=== PATIENT | female | born 1965 | race African-American/Black ===

== ENCOUNTER 2024-08-28 14:20 | Outpatient (AMB) | payer OTHER, SELFPAY ==
--- NOTE | 2024-08-28 14:30 | MHC.OFFVIS ---
Vital Signs 08/28/24 14:31 Height 5 ft 2 in Weight 253 lb 15.56 oz BMI 46.4 BP 120/64 Blood Pressure Location Lt brachial Position Sitting Pulse 104 H Pulse Source Pulse Oximeter Pulse Oximetry (%) 96 Oxygen Delivery Method Room Air Intake Visit Reasons: Hyperthyroidism Intake Note: New patient present today for Hyperthyroidism. Lockstitch Hemmer Required: No Accompanied by: Self / Same As Patient Allergies No Known Allergies Allergy (Verified 08/28/24 14:35) Medication List - Last Reconciled 08/28/24 by Rosemarie Mart MD atorvastatin 40 mg PO DAILY meloxicam 7.5 mg PO DAILY tirzepatide (weight loss) (Zepbound) 2.5 mg subcut QWEEK HPI Comments Details: 58-year-old female coming in today for initial evaluation of hyperthyroidism. Was being seen by endo at [facility] some 3-4 years ago . Diagnosed sometime in 2020/2021. Was never started on medication per patient . Per PCP notes she used to be on methimazole. Thinks she had an US and maybe an uptake and scan. Patient currently denies heat or cold intolerance, diarrhea or constipation, hair loss, palpitation, anxiety, weight changes, mood changes, low energy, changes in appearance of eyes or vision changes, tremors, increased diaphoresis or dry skin. ? Patient denies any difficulty swallowing, pain on swallowing or voice changes or difficulty breathing. Patient denies any history of childhood neck radiation. Denies having ever used lithium, amiodarone or biotin supplements. Patient denies any family history of thyroid cancer or thyroid disease. Physical exam General: sitting comfortably in no acute distress HEENT: normocephalic/atraumatic, EOM intact, moist oral mucosa Neck: supple, , palpable 1 cm right-sided nodule, enlarged thyroid gland Cardiac: normal heart sounds Pulm: normal breath sounds B/L, no added breath sounds Abd: not distended, no tenderness Extremities: no edema, no signs of myxedema PFSH Medical History (Updated 08/28/24 @ 14:58 by Rosemarie Mart MD) Thyromegaly Hyperthyroidism delivery delivered Surgical History (Updated 08/28/24 @ 14:38 by KIANNA Loya) H/O removal of cyst Family History (Updated 08/28/24 @ 14:38 by KIANNA Loya) Mother Kidney problem Father No problems noted. Social History Alcohol intake: never Patient Tobacco Use Status: Current everyday Tobacco user Tobacco use type: Cigarette Cigarette Packs Per Day: 1 Assessment & Plan Assessment & Plan (1) Hyperthyroidism: Code(s): E05.90 - Thyrotoxicosis, unspecified without thyrotoxic crisis or storm Category: Medical Plan: 58-year-old female coming in today for initial evaluation of hyperthyroidism. Per chart review she has a history of hyperthyroidism diagnosed some 3-4 years ago, she was on methimazole for a little bit but has been off it for a few years. Was lost to follow up. Was previously seen at [facility]. We will try to obtain records. For now I will order her thyroid labs. On my exam she is mildly tachycardic but otherwise denies any symptoms. No tremors. She denies any vision changes but she does have a little bit of a stare on exam, possibly concerning for some early signs of orbitopathy. Plan: -ordered TSH, free T4, total T3, TSH receptor, TPO and TSI antibodies -get records from [facility] (2) Thyromegaly: Code(s): E01.0 - Iodine-deficiency related diffuse (endemic) goiter Category: Medical Plan: On my exam she has a prominent thyroid gland with a possible palpable nodule on the right side about 1 cm in size. We will obtain thyroid ultrasound. Plan: -ordered thyroid ultrasound Plan See above Orders: Orders Thyroid Stimulating Hormone Today E05.90 - Thyrotoxicosis, unspecified without thyrotoxic crisis or storm Free T4 (Free Thyroxine) Today E05.90 - Thyrotoxicosis, unspecified without thyrotoxic crisis or storm Thyroid Peroxidase Antibodies Today E05.90 - Thyrotoxicosis, unspecified without thyrotoxic crisis or storm Thyroid Stimulating Immunoglob Today E05.90 - Thyrotoxicosis, unspecified without thyrotoxic crisis or storm Thyrotropin Receptor Antibody Today E05.90 - Thyrotoxicosis, unspecified without thyrotoxic crisis or storm US thyroid Today E01.0 - Iodine-deficiency related diffuse (endemic) goiter, E05.90 - Thyrotoxicosis, unspecified without thyrotoxic crisis or storm Triiodothyronine T3 Total Today E05.90 - Thyrotoxicosis, unspecified without thyrotoxic crisis or storm Patient Instructions: Do blood work Do ultrasound of the thyroid, someone will call you to schedule this Follow up in 6 weeks to discuss results Coding Level of Care Code New Pt Level 4 (10289) Diagnoses Hyperthyroidism E05.90 Thyromegaly E01.0
[2024-08-28 14:31] VITALS: BP 120/64; PULSE 104; O2SAT 96; BMI 46.4
--- OUTSIDE RECORDS SUMMARY | 2024-08-28 15:47 | XMS_ITS | Clinical Summary ---
Author Organization [address] [facility] Address [address] [place] [phone] Phone Care Team Providers Care Telephone Solicitor Name Role Phone Herbie Huang DO Primary Care Provider [phone] Allergies No known active allergies Medications atorvastatin (LIPITOR) 40 mg tablet Take 1 tablet (40 mg total) by mouth at bedtime. 11/13/19 20 Active meloxicam (MOBIC) 7.5 mg tablet Take 1 tablet (7.5 mg total) by mouth 1 (one) time each day. Active albuterol HFA (PROVENTIL HFA;VENTOLIN HFA) 108 (90 Base) MCG/ACT inhaler Inhale 2 puffs by mouth every 4 (four) hours. Active Zepbound 2.5 mg/0.5 mL injection Inject 0.5 mL (2.5 mg total) under the skin 1 (one) time per week. 07/24/19 25 Active bisacodyL (DULCOLAX) 5 mg EC tablet Take 2 tablets by mouth right before beginning bowel prep. See instructions provided by the office 2 tablet 08/10/19 25 025 Discontinued polyethylene glycol (Golytely) 236-22.74-6.74 -5.86 gram solution Take 4L by mouth once for one dose. May substitue any PEG. Starting at 6PM the night before your procedure drink 1 8oz glasses at your own pace until you complete half of the gallon. Finish 2nd half of the gallon 5 hours before your procedure. 4000 mL 08/10/19 25 025 Discontinued Encounters Date Type Department Care Team Description 08/27/2024 Telephone Gastroenterology - [address] [place] [phone] Kate Simpson MA 08/23/2024 1:48 PM EDT - 08/23/2024 11:59 PM EDT Hospital Encounter [facility] [address] [place] [phone] Ashley Henao MD Georgette, Nathaniel, CRNA Kriz, Petra, MD Hx of colonic polyps Discharge Disposition: Home or Self Care 07/06/2024 7:49 AM EDT - 07/06/2024 11:59 PM EDT [facility] [address] [phone] Visit for screening mammogram Discharge Disposition: Home or Self Care 06/27/2024 Telephone Gastroenterology - [address] [phone] Adalid Blandon MD SPECIAL PROCEDURE from Last 3 Months Surgical History Surgery Date Site/Laterality Comments MULTIPLE TOOTH EXTRACTIONS PROCEDURE: HISTORICAL DENTAL EXTRACTION Medical History Medical History Date Comments Obesity 04/18/2007 DX:Obesity Hyperlipidemia Family History Medical History Relation Name Comments Diabetes Father Prostate cancer Father Breast cancer Neg Hx Relation Name Status Comments Brother Alive 2 Father Alive Mother Alive atrial fibrilla tion, CKD Social History Tobacco Use Types Packs/Day Years Used Date Smoking Tobacco: Every Day Cigarettes Smokeless Tobacco: Current Alcohol Use Standard Drinks/Week Comments No 0 (1 standard drink = 0.6 oz pur e alcohol) Interpersonal Safety Answer Date Record ed Physical Abuse 08/23/2024 Verbal Abuse 08/23/2024 Comments No Sex and Gender Information Value Date Recorded Sex Assigned at Female 07/04/2024 9:02 AM EDT Legal Sex Female 8:08 PM EST Gender Identity Female 07/04/2024 9:02 AM EDT Sexual Orientation Straight 07/04/2024 9: 02 AM EDT Obstetrics History Para Term AB IAB SAB Ectopic Multiple Livin g Live Births 2 Last Filed Vital Signs Vital Sign Reading Time Taken Comments Blood Pressure 133/91 08/23/2024 2:35 PM EDT Pulse 86 08/23/2024 2:35 PM EDT Temperature 36.8 ??C (98.2 ??F) 08/23/2024 2:35 PM ED T Respiratory Rate 18 08/23/2024 2:35 PM EDT Oxygen Saturation 100% 08/23/2024 2:35 PM EDT Inhaled Oxygen Concentration - - Weight 74.4 kg (164 lb) 07/06/2024 7:58 AM EDT Height 157.5 cm (5' 2 ) 07/06/2024 7:58 AM EDT Body Mass Index 30 07/06/2024 7:58 AM EDT Plan of Treatment Health Maintenance Due Date Last Done Comments Diabetes: Annual Foot Exam 10/29/1975 Diabetes: Annual Retina Eye Exam 10/29/1975 Hepatitis B Vaccines (1 of 3 - 19+ 3-dose series) 1984 Pneumococcal Vaccine: 50+ Years (1 of 2 - PCV) 1984 Pneumococcal Vaccine: Pediatrics (0 to 5 Years) and At-Risk Patients (6 to 64 Years) (1 of 2 - PCV) 1984 Cervical Cancer Screening: Pap Smear 1986 Zoster Vaccines (1 of 2) 10/29/2015 DTaP,Tdap,and Td Vaccines (2 - Td or Tdap) 04/18/2017 04/18/2007 Depression Screening 03/13/2022 HIV Screening 03/13/2022 Hepatitis C Screening 03/13/2022 Social Influencers of Health Screening 03/13/2022 Diabetes: Blood Sugar Control Test (HGBA1C) 12/28/2024 06/27/2024 Diabetes: Annual Urine Albumin-Creatinine Ratio (uACR) 06/27/2025 06/27/2024 Diabetes: Annual GFR (Glomerular Filtration Rate) 06/27/2025 06/27/2024 Breast Cancer Screening 07/06/2026 07/06/2024, 04/13 Cholesterol Screening (Lipid Panel) 06/27/2029 06/27/2024 Colorectal Cancer Screening: Colonoscopy 08/23/2034 08/23/2024, 05/10/2017 COVID-19 Vaccine Completed 12/31/2023, 11/2022, 01/13/2021, Additional history exists Influenza Vaccine Completed 12/31/2023, , 01/26/2022, Additional history exists HIB Vaccines Aged Out No longer eligi ble based on patient's age to complete this topic HPV Vaccines Aged Out No longer eligi ble based on patient's age to complete this topic Hepatitis A Vaccines Aged Out No long er eligible based on patient's age to complete this topic IPV Vaccines Aged Out No longer eligi ble based on patient's age to complete this topic MMR Vaccines Aged Out No longer eligi ble based on patient's age to complete this topic Meningococcal ACWY Vaccine Aged Out N o longer eligible based on patient's age to complete this topic Meningococcal B Vaccine Aged Out No l onger eligible based on patient's age to complete this topic RSV Immunization Patients Under 20 months Aged Out No longer eligible based on patient's age to complete this topic Varicella Vaccines Aged Out No longer eligible based on patient's age to complete this topic Procedures Procedure Name Priority Date/Time Associated Diagnosis Comments COLONOSCOPY Routine 08/23/2024 2:33 PM EDT Hx of colonic polyps TISSUE EXAM Routine 08/23/2024 2:30 PM EDT Hx of colonic polyps MG MAMMO DIGITAL SCREENING W YOVANI BILAT Routine 07/06/2024 8:14 AM EDT Visit for screening mammogram THYROXINE FREE Routine 06/27/2024 8:29 AM EDT Routine general medical examination at a health care facility Impaired fasting glucose 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 ischemic heart disease 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 Hyperlipemia DM2 (diabetes mellitus, type 2) (CMS/HCC V24, CMS/HCC V28) Diabetes mellitus (CMS/HCC V24, CMS/HCC V28) CBC WITH AUTO DIFFERENTIAL Routine 06/27/2024 8:29 AM EDT Routine general medical examination at a health care facility Impaired fasting glucose 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 ischemic heart disease 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 Hyperlipemia DM2 (diabetes mellitus, type 2) (CMS/HCC V24, CMS/HCC V28) Diabetes mellitus (CMS/HCC V24, CMS/HCC V28) MICROALBUMIN CREATININE URINE RATIO Routine 06/27/2024 8:29 AM EDT Routine general medical examination at a health care facility Impaired fasting glucose 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 ischemic heart disease 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 Hyperlipemia DM2 (diabetes mellitus, type 2) (CMS/HCC V24, CMS/HCC V28) Diabetes mellitus (CMS/HCC V24, CMS/HCC V28) HEMOGLOBIN A1C Routine 06/27/2024 8:29 AM EDT Routine general medical examination at a health care facility Impaired fasting glucose 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 ischemic heart disease 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 Hyperlipemia DM2 (diabetes mellitus, type 2) (CMS/HCC V24, CMS/HCC V28) Diabetes mellitus (CMS/HCC V24, CMS/HCC V28) CBC AND DIFFERENTIAL Routine 06/27/2024 8:29 AM EDT Routine general medical examination at a health care facility Impaired fasting glucose 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 ischemic heart disease 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 Hyperlipemia DM2 (diabetes mellitus, type 2) (CMS/HCC V24, CMS/HCC V28) Diabetes mellitus (CMS/HCC V24, CMS/HCC V28) THYROID STIMULATING HORMONE Routine 06/27/2024 8:29 AM EDT Routine general medical examination at a health care facility Impaired fasting glucose 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 ischemic heart disease 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 Hyperlipemia DM2 (diabetes mellitus, type 2) (CMS/HCC V24, CMS/HCC V28) Diabetes mellitus (CMS/HCC V24, CMS/HCC V28) BASIC METABOLIC PANEL Routine 06/27/2024 8:29 AM EDT Routine general medical examination at a health care facility Impaired fasting glucose 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 ischemic heart disease 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 Hyperlipemia DM2 (diabetes mellitus, type 2) (CMS/HCC V24, CMS/HCC V28) Diabetes mellitus (CMS/HCC V24, CMS/HCC V28) CREATINE KINASE Routine 06/27/2024 8:29 AM EDT Routine general medical examination at a health care facility Impaired fasting glucose 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 ischemic heart disease 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 Hyperlipemia DM2 (diabetes mellitus, type 2) (CMS/HCC V24, CMS/HCC V28) Diabetes mellitus (CMS/HCC V24, CMS/HCC V28) ASPARTATE AMINOTRANSFERASE Routine 06/27/2024 8:29 AM EDT Routine general medical examination at a health care facility Impaired fasting glucose 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 ischemic heart disease 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 Hyperlipemia DM2 (diabetes mellitus, type 2) (CMS/HCC V24, CMS/HCC V28) Diabetes mellitus (CMS/HCC V24, CMS/HCC V28) ALANINE AMINOTRANSFERASE Routine 025 8:29 AM EDT Routine general medical examination at a health care facility Impaired fasting glucose 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 ischemic heart disease 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 Hyperlipemia DM2 (diabetes mellitus, type 2) (CMS/HCC V24, CMS/HCC V28) Diabetes mellitus (CMS/HCC V24, CMS/HCC V28) LIPID PANEL WITH REFLEX TO DIRECT LDL Routine 06/27/2024 8:29 AM EDT Routine general medical examination at a health care facility Impaired fasting glucose 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 ischemic heart disease 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 Hyperlipemia DM2 (diabetes mellitus, type 2) (CMS/HCC V24, CMS/HCC V28) Diabetes mellitus (CMS/HCC V24, CMS/HCC V28) from Last 3 Months Results * [place] [facility] [place] [facility] (08/23/2024 2:33 PM EDT) Anatomical Region Laterality Modality Endoscopy 08/23/2024 2:19 PM EDT Impressions 08/23/2024 2:32 PM EDT - Two 3 to 5 mm polyps in the sigmoid colon, removed ? with a cold snare. Resected and retrieved. ? - Internal hemorrhoids. Recommendation: ?- Repeat colonoscopy at appointment to be scheduled ? because the examination was incomplete. ? - Await pathology results. Narrative 08/23/2024 2:32 PM EDT [facility] Patient Name: Loli Shah Procedure Date: 08/23/2024 2:19 PM Date of : 1965 Age: 58 Gender: Female Note Status: Finalized Attending MD: Ashley Henao MD, Procedure Date No Time: 08/23/2024 Procedure: ? Colonoscopy Indications: ? 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 Ashley Henao MD Referring MD: ?Herbie Huang, DO Medicines: ? None, Patient was not told to stop Zebound prior to ? procedure. She had completed the prep so still wanted ? to try doing the colonoscopy without sedation. Complications: ? No immediate complications. Estimated Blood Loss: ? Estimated blood loss: none. Procedure: ? Pre-Anesthesia Assessment: ? - ASA Grade Assessment: II - A patient with mild ? systemic disease. ? After I obtained informed consent, the scope was ? passed under direct vision. Throughout the procedure, ? the patient's blood pressure, pulse, and oxygen ? saturations were monitored continuously.The ? Colonoscope was introduced through the anus with the ? intention of advancing to the ileum. The scope was ? advanced to the splenic flexure before the procedure ? was aborted due to patient discomfort. Medications ? were not given. The colonoscopy was performed without ? difficulty. The patient tolerated the procedure fairly ? well. The quality of the bowel preparation was ? excellent. Findings: ?The perianal and digital rectal examinations were ? normal. ? Two sessile polyps were found in the sigmoid colon. ? The polyps were 3 to 5 mm in size. These polyps were ? removed with a cold snare. Resection and retrieval ? were complete. ? Internal hemorrhoids were found during retroflexion. ? The hemorrhoids were Grade I (internal hemorrhoids ? that do not prolapse). Procedure Code(s): ? --- Professional --- ? 74593, 52, Colonoscopy, flexible; with removal of ? tumor(s), polyp(s), or other lesion(s) by snare ? technique Diagnosis Code(s): ? --- Professional --- ? Z86.010, Personal history of colonic polyps ? D12.5, Benign neoplasm of sigmoid colon CPT copyright 2020 [employer]. All rights reserved. The codes documented in this report are preliminary and upon cook cold meat review may be revised to meet current compliance requirements. Ashley Henao MD 08/23/2024 2:32:26 PM This report has been signed electronically.Ashley Henao MD Number of Addenda: 0 Note Initiated On: 08/23/2024 2:19 PM Scope In: Scope Out: ? Endoscopy Department at [facility] - [address] [place] [address], ? [place] [phone] Procedure Note Ashley Henao MD - 08/23/2024 [facility] Patient Name: Loli Shah Procedure Date: 08/23/2024 2:19 PM Date of : 1965 Age: 58 Gender: Female Note Status: Finalized Attending MD: Ashley Henao MD, Procedure Date No Time: 08/23/2024 Procedure: Colonoscopy Indications: High risk colon cancer surveillance: Personalhistory of traditional serrated adenoma of the colon Providers: Ashley Henao MD Referring MD: Herbie Huang DO Medicines: None, Patient was not told to stop Zebound prior to procedure. She had completed the prep so stillwanted to try doing the colonoscopy without sedation. Complications: No immediate complications. Estimated Blood Loss: Estimated blood loss: none. Procedure: Pre-Anesthesia Assessment: - ASA Grade Assessment: II - A patient with mild systemic disease. After I obtained informed consent, the scope was passed under direct vision. Throughout theprocedure, the patient's blood pressure, pulse, and oxygen saturations were monitored continuously.The Colonoscope was introduced through the anus withthe intention of advancing to the ileum. The scope was advanced to the splenic flexure before theprocedure was aborted due to patient discomfort. Medications were not given. The colonoscopy was performedwithout difficulty. The patient tolerated the procedurefairly well. The quality of the bowel preparation was excellent. Findings: The perianal and digital rectal examinations were normal. Two sessile polyps were found in the sigmoid colon. The polyps were 3 to 5 mm in size. These polypswere removed with a cold snare. Resection and retrieval were complete. Internal hemorrhoids were found duringretroflexion. The hemorrhoids were Grade I (internal hemorrhoids that do not prolapse). Procedure Code(s): --- Professional --- 42677, 52, Colonoscopy, flexible; with removal of tumor(s), polyp(s), or other lesion(s) by snare technique Diagnosis Code(s): --- Professional --- Z86.010, Personal history of colonic polyps D12.5, Benign neoplasm of sigmoid colon CPT copyright 2020 [employer]. All rights reserved. The codes documented in this report are preliminary and upon cook cold meat reviewmay be revised to meet current compliance requirements. Ashley Henao MD 08/23/2024 2:32:26 PM This report has been signed electronically.Ashley Henao MD Number of Addenda: 0 Note Initiated On: 08/23/2024 2:19 PM Scope In: Scope Out: Endoscopy Department at [facility] - [address] [place] [phone] IMPRESSION: - Two 3 to 5 mm polyps in the sigmoid colon, removed with a cold snare. Resected and retrieved. - Internal hemorrhoids. Recommendation: - Repeat colonoscopy at appointment to be scheduled because the examination was incomplete. - Await pathology results. us Ashley Henao MD GI~PROCEDURE ORDERABLES Final Result * Tissue exam (08/23/2024 2:30 PM EDT) Final Diagnosis Polyps (x2 per specimen label), sigmoid colon, polypectomy: - Hyperplastic polyp(s) (three fragments). 08/27/2024 9:17 AM EDT [facility] Gross Description A. Large Intestine, Sigmoid Colon, polyp x2: Labeled sigmoid colon polyp x 2 . Received in formalin are three soft to rubbery, pearson-brown tissue fragments ranging from 0.6 cm to 1.5 cm, in greatest diameters, which are wrapped in paper and submitted in toto in one cassette, three pieces, multiple levels. dvb/DG 08/27/2024 9:17 AM EDT [facility] Disclaimer Unless otherwise specified, all tissue is 10% NB formalin fixed and paraffin embedded. 08/27/2024 9:17 AM EDT [facility] Tissue Sigmoid colon structure / Unknown 08/23/2024 2:30 PM EDT 08/23/2024 3:49 PM EDT us Ashley Henao MD LAB PATHOLOGY ORDERABLES Final Result [facility] [address] [place] [address], * MG Mammo Digital Screening w Yovani bilat (07/06/2024 8:14 AM EDT) Anatomical Region Laterality Modality Breast Bilateral Mammography 07/10/2024 4:50 PM EDT Impressions 07/10/2024 4:56 PM EDT No evidence of breast malignancy BI-RADS CATEGORY: 1 - NEGATIVE RECOMMENDATION: Screening bilateral mammogram is recommended in 1 year. Mammo Location: [facility], [address] [place] [address], [id number], . -------- FINAL REPORT -------- Dictated By: Valerie Leonardo Dictated Date: 07/10/2024 16:50 ET Assigned Physician: Valerie Leonardo Reviewed and Electronically Signed By: Valerie Leonardo Signed Date: 07/10/2024 16:56 ET Workstation ID: [id number] Transcribed By: Self Edit Transcribed Date: 07/10/2024 16:50 ET Narrative 07/10/2024 4:56 PM EDT CLINICAL: 58 years old, Female, routine annual exam. COMPARISON: 04/13/2018 and 04/08/2017 ?? TECHNIQUE: Bilateral MLO and CC views were obtained digitally with 3-D mammogram (digital breast tomosynthesis). Computer-aided detection was utilized in evaluation of this exam (CAD). FINDINGS: There is no evidence of suspicious mass or architectural distortion. ??No worrisome calcifications are evident. ??There has been no significant change from prior exam(s). ? Stable biopsy marker in the left breast. BREAST DENSITY: B - There are scattered areas of fibroglandular density. Procedure Note Valerie Leonardo MD - 07/10/2024 CLINICAL: 58 years old, Female, routine annual exam. COMPARISON: 04/13/2018 and 04/08/2017 TECHNIQUE: Bilateral MLO and CC views were obtained digitally with 3-Dmammogram (digital breast tomosynthesis). Computer-aided detection wasutilized in evaluation of this exam (CAD). FINDINGS: There is no evidence of suspicious mass or architectural distortion. Noworrisome calcifications are evident. There has been no significantchange from prior exam(s). Stable biopsy marker in the left breast. BREAST DENSITY: B - There are scattered areas of fibroglandular density. IMPRESSION: No evidence of breast malignancy BI-RADS CATEGORY: 1 - NEGATIVE RECOMMENDATION: Screening bilateral mammogram is recommended in 1 year. Mammo Location: [facility], [address] [place] [address], [id number], . -------- FINAL REPORT -------- Dictated By: Valerie Leonardo Dictated Date: 07/10/2024 16:50 ET Assigned Physician: Valerie Leonardo Reviewed and Electronically Signed By: Valerie Leonardo Signed Date: 07/10/2024 16:56 ET Workstation ID: [id number] Transcribed By: Self Edit Transcribed Date: 07/10/2024 16:50 ET us Herbie Huang DO IMG BI PROCEDURES Final Resul t * Lipid panel with reflex to direct LDL (06/27/2024 8:29 AM EDT) Cholesterol 154 0 - 200 mg/dL LAB CHEMISTRY METHOD 06/27/2024 12:23 PM EDT [facility] Triglycerides 85 0 - 150 mg/dL LAB CHEMISTRY METHOD 06/27/2024 12:23 PM EDT [facility] HDL 43 >=40 mg/dL LAB CHEMISTRY METHOD 06/27/2024 12:23 PM EDT [facility] LDL Calculated 94 0 - 100 mg/dL LAB CHEMISTRY METHOD 06/27/2024 12:23 PM EDT [facility] VLDL Cholesterol Bebo 17 mg/dL LAB CHEMISTRY METHOD 06/27/2024 12:23 PM EDT [facility] Non HDL Chol. (LDL+VLDL) 111 <145 mg/dL LAB CHEMISTRY METHOD 06/27/2024 12:23 PM EDT [facility] Chol/HDL Ratio 3.6 0.0 - 4.4 LAB CHEMISTRY METHOD 06/27/2024 12:23 PM T [facility] Blood Venous blood specimen / Unknown Venipuncture / Unknown 06/27/2024 8:29 AM EDT 06/27/2024 8:29 AM EDT us Patiño Petersen GENERAL MEDICAL PRACTITIONER LAB BLOOD ORDERABLES Final Resul t [facility] [address] [place] [address], * (ABNORMAL) CBC auto differential (06/27/2024 8:29 AM EDT) WBC 5.9 4.8 - 10.8 K/mcL LAB HEMETOLOGY METHOD 06/27/2024 11:32 AM EDT [facility] RBC 4.80 3.80 - 4.80 M/mcL LAB HEMETOLOGY [facility] Hemoglobin 12.2 11.5 - 16.0 g/dL LAB HEMETOLOGY METHOD 06/27/2024 11:32 AM [facility] Hematocrit 39.5 35.0 - 47.0 % LAB HEMETOLOGY METHOD [facility]24 [facility] MCV 82.3 79.0 - 98.0 FL LAB HEMETOLOGY METHOD 06/27/2024 11:32 AM [facility] MCH 25.4(L) 27.0 - 32.0 pcg LAB HEMETOLOGY METHOD 06/27/2024 11:32 AM [facility] MCHC 30.9(L) 32.0 - 37.0 g/dL LAB HEMETOLOGY METHOD 06/27/2024 11:32 AM [facility] RDW 15.4(H) 11.0 - 15.0 % LAB HEMETOLOGY METHOD 06/27/2024 11:32 AM [facility] Platelets 300 130 - 400 K/mcL LAB HEMETOLOGY METHOD [facility]/27[facility]2024 [facility] MPV 10.4 7.0 - 11.0 FL LAB HEMETOLOGY METHOD 06/27/2024 11:32 AM [facility] NRBC 0.0 <1.0 % LAB HEMETOLOGY METHOD 06/27/2024 11:32 AM [facility] NRBC Absolute 0.00 <0.10 K/mcL LAB HEMETOLOGY METHOD 06/27/2024 11:32 AM [facility] Neutrophils Relative 59.8 % LAB HEMETOLOGY METHOD 06/27/2024 11:32 AM [facility] Lymphocytes Relative 29.9 % LAB HEMETOLOGY METHOD 06/27/2024 11:32 AM [facility] Monocytes Relative 7.8 % LAB HEMETOLOGY METHOD 06/27/2024 11:32 AM [facility] Eosinophils Relative 1.5 % LAB HEMETOLOGY METHOD 06/27/2024 11:32 AM [facility] Basophils Relative 0.7 % LAB HEMETOLOGY METHOD 06/27/2024 11:32 AM [facility] Immature Granulocytes Relative 0.3 % LAB HEMETOLOGY METHOD 06/27/2024 11:32 AM [facility] Neutrophils Absolute 3.54 1.50 - 7.00 K/mcL LAB HEMETOLOGY METHOD 06/27/2024 11:32 AM [facility] Lymphocytes Absolute 1.77 1.00 - 5.00 K/mcL LAB HEMETOLOGY METHOD 06/27/2024 11:32 AM [facility] Monocytes Absolute 0.46 0.20 - 1.00 K/mcL LAB HEMETOLOGY METHOD 06/27/2024 11:32 AM [facility] Eosinophils Absolute 0.09 0.00 - 0.50 K/mcL LAB HEMETOLOGY METHOD 06/27/2024 11:32 AM [facility] Basophils Absolute 0.04 0.00 - 0.20 K/mcL LAB HEMETOLOGY METHOD 06/27/2024 11:32 AM EDT [facility] Immature Granulocytes Absolute 0.02 0.00 - 0.03 K/[facility] LAB HEMETOLOGY METHOD 06/27/2024 11:32 AM EDT [facility] Blood Venous blood specimen / Unknown Venipuncture / Unknown 06/27/2024 8:29 AM EDT 06/27/2024 8:29 AM EDT us Patiño Petersen GENERAL MEDICAL PRACTITIONER LAB BLOOD ORDERABLES Final Resul t Performing Organization Address [facility]/ZIP Co de Phone Number [facility] [address] [place] [address], [place] [phone] * Microalbumin creatinine urine ratio (06/27/2024 8:29 AM EDT) Creatinine, Urine 290.0 mg/dL LAB CHEMISTRY METHOD 06/27/2024 12:46 PM EDT [facility] Microalb, Ur 16.2 0.0 - 29.0 mg/L LAB CHEMISTRY METHOD 06/27/2024 12:46 PM EDT [facility] Microalb/Creat Ratio 6 <30 mg/g creat LAB CHEMISTRY METHOD 06/27/2024 12:46 PM EDT [facility] Urine Urine specimen obtained by clean catch procedure / Unknown Non-blood Collection / Unknown 06/27/2024 8:29 AM EDT 06/27/2024 8:29 AM EDT us Patiño Petersen GENERAL MEDICAL PRACTITIONER LAB URINE ORDERABLES Final Resul t Performing Organization Address [facility]/ZIP Co de Phone Number [facility] [address] [place] [address], [place] [phone] * Alanine aminotransferase (06/27/2024 8:29 AM EDT) ALT (SGPT) 15 10 - 60 unit/L LAB CHEMISTRY METHOD 06/27/2024 12:23 PM EDT [facility] Blood Venous blood specimen / Unknown Venipuncture / Unknown 06/27/2024 8:29 AM EDT 06/27/2024 8:29 AM EDT us Patiño Petersen GENERAL MEDICAL PRACTITIONER LAB BLOOD ORDERABLES Final Resul t Performing Organization Address City/[facility] Co de Phone Number [facility] [address] [place] [address], [place] [phone] * Aspartate aminotransferase (06/27/2024 8:29 AM EDT) AST (SGOT) 11 10 - 42 unit/L LAB CHEMISTRY METHOD 06/27/2024 12:16 PM EDT [facility] Blood Venous blood specimen / Unknown Venipuncture / Unknown 06/27/2024 8:29 AM EDT 06/27/2024 8:29 AM EDT us Patiño Petersen GENERAL MEDICAL PRACTITIONER LAB BLOOD ORDERABLES Final Resul t Performing Organization Address [facility] de Phone Number [facility] [address] [place] [address], [place] [phone] * (ABNORMAL) Thyroid stimulating hormone (06/27/2024 8:29 AM EDT) TSH 0.11(L) 0.40 - 4.00 mcIU/mL LAB CHEMISTRY METHOD 06/27/2024 12:23 PM EDT [facility] Blood Venous blood specimen / Unknown Venipuncture / Unknown 06/27/2024 8:29 AM EDT 06/27/2024 8:29 AM EDT us Patiño Petersen GENERAL MEDICAL PRACTITIONER LAB BLOOD ORDERABLES Final Resul t Performing Organization Address City/[facility]/ZIP Co de Phone Number [facility] [address] [place] [address], [place] [phone] * Thyroxine free (06/27/2024 8:29 AM EDT) Free T4 1.21 0.70 - 1.80 ng/dL LAB CHEMISTRY METHOD 06/29/2024 4:01 PM EDT [facility] Blood Venous blood specimen / Unknown Venipuncture / Unknown 06/27/2024 8:29 AM EDT 06/27/2024 8:29 AM EDT Patiño [facility] LAB BLOOD ORDERABLES Final Resul t [facility] [address] [place] [address], [place] [phone] * (ABNORMAL) Hemoglobin A1c (06/27/2024 8:29 AM EDT) Pathologist [facility] Hemoglobin A1C 7.0(H) <6.5 % LAB CHEMISTRY METHOD 06/27/2024 1:38 PM EDT [facility] Mean Bld Glu Estim. 154 mg/dL LAB CHEMISTRY METHOD 06/27/2024 1:38 PM EDT [facility] Blood Venous blood specimen / Unknown Venipuncture / Unknown 06/27/2024 8:29 AM EDT 06/27/2024 8:29 AM EDT Patiño [facility] LAB BLOOD ORDERABLES Final Resul t [facility] [address] [place] [address], [place] [phone] * Creatine kinase (06/27/2024 8:29 AM EDT) Total CK 132 22 - 269 unit/L LAB CHEMISTRY METHOD 06/27/2024 12:23 PM EDT [facility] Blood Venous blood specimen / Unknown Venipuncture / Unknown 06/27/2024 8:29 AM EDT 06/27/2024 8:29 AM EDT us Patiño Petersen GENERAL MEDICAL PRACTITIONER LAB BLOOD ORDERABLES Final Resul t [facility] [address] [place] [address], [place] [phone] * (ABNORMAL) Basic metabolic panel (06/27/2024 8:29 AM EDT) Sodium 143 133 - 145 mmol/L LAB CHEMISTRY METHOD 06/27/2024 12:23 PM [facility] Potassium 4.2 3.5 - 5.5 mmol/L LAB CHEMISTRY METHOD 06/27/2024 12:23 PM [facility] Chloride 110 96 - 110 mmol/L LAB CHEMISTRY METHOD 06/27/2024 12:23 PM [facility] CO2 25 21 - 32 mmol/L LAB CHEMISTRY METHOD 06/27/2024 12:23 PM [facility] Anion Gap 8 3 - 11 LAB CHEMISTRY METHOD 06/27/2024 12:23 PM [facility] Glucose 102(H) 70 - 100 mg/dL LAB CHEMISTRY METHOD 06/27/2024 12:23 PM [facility] BUN 7 5 - 25 mg/dL LAB CHEMISTRY METHOD 06/27/2024 12:23 PM [facility] Creatinine 0.68 0.50 - 1.10 mg/dL LAB CHEMISTRY METHOD 06/27/2024 12:23 PM [facility] eGFR 101 >=60 mL/min/1. 73m2 LAB CHEMISTRY METHOD 06/27/2024 12:23 PM [facility] Comment:Calculation based on the??Chronic Kidney Disease Epidemiology Collaboration (CKD-EPI) equation refit??without adjustment for race. BUN/Creatinine Ratio 10.3 LAB CHEMISTRY METHOD 06/27/2024 12:23 PM EDT [facility] Calcium 9.1 8.5 - 10.5 mg/dL LAB CHEMISTRY METHOD 06/27/2024 12:23 PM EDT [facility] Blood Venous blood specimen / Unknown Venipuncture / Unknown 06/27/2024 8:29 AM EDT 06/27/2024 8:29 AM EDT us Patiño Petersen GENERAL MEDICAL PRACTITIONER LAB BLOOD ORDERABLES Final Resul t [facility] [address] [place] [address], from Last 3 Months Insurance [employer] [facility] Care Teams Telephone Solicitor Relationship Specialty Start Date End Date Herbie Huang DO [address] [place] [phone] PCP - General Internal Medicine 03/06/24
--- OUTSIDE RECORDS SUMMARY | 2024-08-28 15:47 | XMS_ITS | Encounter Summary ---
Author Organization [facility] Address [address] [place] [address] Care Team Providers Care Wood Inspector Name Role Phone Herbie Huang DO Primary Care Provider [phone] Encounter Details Date Type Department Care Team (Late st Contact Info) Description 08/27/2024 Telephone Gastroenterology - [address] [place] [phone] Kate Simpson MA Social History Tobacco Use Types Packs/Day Years [...] Orientation Straight 07/04/2024 9: 02 AM EDT documented as of this encounter Progress Notes * Kate Simpson MA - 08/27/2024 2:09 PM EDT Called pt - can't except calls at this time. * Kate Simpson MA - 08/27/2024 2:09 PM EDT ----- Message from Connor Henao MD sent at 08/27/2024 2:04 PM EDT ----- Please let patient know that the colon polyps that were removed were benign. Please make sure colonoscopy rescheduled and that she is off Zepbound prior to procedure. (She just had unsedated flexiblesigmoidoscopy). documented in this encounter Plan of Treatment Not on file documented as of this encounter Visit Diagnoses Not on filedocumented in this encounter Care Teams Wood Inspector Relationship Specialty Start Date End Date Herbie Huang DO [address] [place] [phone] PCP - General Internal Medicine 03/06/24 documented as of this encounter
--- OUTSIDE RECORDS SUMMARY | 2024-08-28 15:47 | XMS_ITS | Encounter Summary ---
Author Organization [facility] Address [address] [place] [address] Care Team Providers Care Automotive Accessory Installer Name Role Phone Herbie Huang DO Primary Care Provider [phone] Reason for Referral * Hospital - Outpatient (Routine) - Closed Specialty Diagnoses / Procedures Referred By Contac t Referred To Contact Gastroenterology Diagnoses Hx of colonic polyps Procedures COLONOSCOPY Anesthesia - MAC; [facility] ENDOSCOPY Ashley Henao MD [address] [address] Phone: tel: fax: [facility] [address] [place] [phone] Phone: tel: Referral ID Status Reason Start Date Expiration Date Visits Re quested Visits Authorized [id number] Closed 06/28/2024 06/28/2025 1 1 Reason for Visit * Hospital - Outpatient (Routine) - Closed Specialty Diagnoses / Procedures Referred By Contac t Referred To Contact Gastroenterology Diagnoses Hx of colonic polyps Procedures COLONOSCOPY Anesthesia - MAC; [facility] ENDOSCOPY Ashley Henao MD [address] [address] Phone: tel: fax: [facility] [address] [place] [address] Phone: tel: Referral ID Status Reason Start Date Expiration Date Visits Re quested Visits Authorized [id number] Closed 06/28/2024 06/28/2025 1 1 Encounter Details Date Type Department Care Team (Latest Contact Info) Description 08/23/2024 1:48 PM EDT - 08/23/2024 11:59 PM EDT Hospital Encounter [facility] [address] [place] [phone] Ashley Henao MD [address] [address] Sudeep Lao CRNA [address] [place] [address] Angeles Pacheco MD [address] [place] [address] Hx of colonic polyps Discharge Disposition: Home or Self Care Social History Tobacco Use Types Packs/Day Years [...] AM EDT documented as of this encounter Last Filed Vital Signs Vital Sign Reading Time Taken Comments Blood Pressure 133/91 08/23/2024 2:35 PM EDT Pulse 86 08/23/2024 2:35 PM EDT Temperature 36.8 ??C (98.2 ??F) 08/23/2024 2:35 PM ED T Respiratory Rate 18 08/23/2024 2:35 PM EDT Oxygen Saturation 100% 08/23/2024 2:35 PM EDT Inhaled Oxygen Concentration - - Weight - - Height - - Body Mass Index - - documented in this encounter Discharge Instructions * Attachments The following attachments cannot be sent through Care Everywhere. * Colonoscopy: Post-op (Syriac) * Colon Polyps (Syriac) documented in this encounter Medications at Time of Discharge albuterol HFA (PROVENTIL HFA;VENTOLIN HFA) 108 (90 Base) MCG/ACT inhaler Inhale 2 puffs by mouth every 4 (four) hours. atorvastatin (LIPITOR) 40 mg tablet Take 1 tablet (40 mg total) by mouth at bedtime. 11/13/2019 meloxicam (MOBIC) 7.5 mg tablet Take 1 tablet (7.5 mg total) by mouth 1 (one) time each day. Zepbound 2.5 mg/0.5 mL injection Inject 0.5 mL (2.5 mg total) under the skin 1 (one) time per week. 07/23/2024 documented as of this encounter Discharge Disposition Disposition Code Departure Means Destination Home or Self Care documented in this encounter Progress Notes * Ashley Henao MD - 08/23/2024 3:00 PM EDT Please let patient know that the colon polyps that were removed were benign. Please make sure colonoscopy rescheduled and that she is off Zepbound prior to procedure. (She just had unsedated flexiblesigmoidoscopy). * Yash Ibrahim RN - 08/23/2024 3:00 PM EDT Problem: Cognitive:Periop Procedure - Minor Goal: Knowledge of disease or condition will improve Outcome: Adequate for Discharge Problem: Coping:Periop Procedure - Minor Goal: Verbalizations of alleviation of anxiety will increase Outcome: Adequate for Discharge * Yash Ibrahim RN - 08/23/2024 2:54 PM EDT Pt wanted not to have anesthesia Vitals during case 1420- hr 92 rr16 o2 sat 100% BP 120/63 1423- hr 94 rr 22 o2 sat 98% BP 128/65 1426- hr 88 rr22 o2 sat 97% BP 97/59 Pt unable to tolerate procedure aborted MD was able to take 2 sigmoid polyps Scope removed at 1428 Pt recovered in room, VSS, IV discontinued. Pt dressed and able to leave on their own. * Yash Ibrahim RN - 08/23/2024 2:29 PM EDT Procedure aborted pt unable to tolerate without anesthesia * Fanta Sterling RN - 08/23/2024 2:07 PM EDT Problem: Cognitive:Periop Procedure - Minor Goal: Knowledge of disease or condition will improve Outcome: Progressing Problem: Coping:Periop Procedure - Minor Goal: Verbalizations of alleviation of anxiety will increase Outcome: Progressing PT VERBALIZED UNDERSTAND OF DC INSTRUCTIONS, FALL RISK REVIEWED, CALL MUÑIZ AT BEDSIDE. documented in this encounter H&P Notes * Ashley Henao MD - 08/23/2024 3:00 PM EDT Pre-Op Diagnosis: Personal history of SSA 04/2017 colonoscopy Proposed Procedure: Colonoscopy Performing Surgeon/MD/Endoscopist: Ashley Henao MD Medical/History: Past Medical History: Diagnosis Date Hyperlipidemia Obesity 04/18/2007 DX:Obesity Past Surgical History: Procedure Laterality Date MULTIPLE TOOTH EXTRACTIONS PROCEDURE: HISTORICAL DENTAL EXTRACTION Medications/Allergies: Prior to Admission medications Medication Sig Start Date End Date Taking? Authorizing Provider atorvastatin (LIPITOR) 40 mg tablet Take 1 tablet (40 mg total) by mouth at bedtime. 11/13/19 Yes Historical Provider, meloxicam (MOBIC) 7.5 mg tablet Take 1 tablet (7.5 mg total) by mouth 1 (one) time each day. Yes Historical Provider, Zepbound 2.5 mg/0.5 mL injection Inject 0.5 mL (2.5 mg total) under the skin 1 (one) time per week.07/23/24 Yes Historical Provider, albuterol HFA (PROVENTIL HFA;VENTOLIN HFA) 108 (90 Base) MCG/ACT inhaler Inhale 2 puffs by mouth every 4 (four) hours. Historical Provider, bisacodyL (DULCOLAX) 5 mg EC tablet Take 2 tablets by mouth right before beginning bowel prep. See instructions provided by the office 08/09/24 08/23/24 Ashley Henao MD polyethylene glycol (Golytely) 236-22.74-6.74 -5.86 gram solution Take 4L by mouth once for one dose. May substitue any PEG. Starting at 6PM the night before your procedure drink 1 8oz glasses at your own pace until you complete half of the gallon. Finish 2nd half of the gallon 5 hours before your procedure. 08/09/24 08/23/24 Ashley Henao MD Patient Age:58 y.o. Vitals: Vitals: 08/23/24 1416 BP: 117/58 Pulse: 97 Resp: 16 Temp: 36.1 ??C (97 ??F) SpO2: 97% Physical Exam: Mental Status: Clear HEENT: WNL Heart: WNL Lungs: WNL Abdomen: WNL Extremities: WNL Neuro: WNL Diagnosis/Plan: Surveillance colonoscopy documented in this encounter Procedure Notes * Yash Ibrahim RN - 08/23/2024 3:00 PM EDT Pt alert and oriented Tolerating po intake well bedside to speak with pt Call [facility] All belongings returned to pt * Yash Ibrahim RN - 08/23/2024 3:00 PM EDT Pt alert and oriented Tolerating po intake well bedside to speak with pt Call [facility] All belongings returned to pt documented in this encounter Plan of Treatment Not on file documented as of this encounter Procedures Procedure Name Priority Date/Time Associated Diagnosis Comments COLONOSCOPY Routine 08/23/2024 2:33 PM EDT Hx of colonic polyps TISSUE EXAM Routine 08/23/2024 2:30 PM EDT Hx of colonic polyps documented in this encounter Results * COLONOSCOPY Anesthesia - MAC; [facility] ENDOSCOPY (08/23/2024 2:33 PM EDT) Anatomical Region [...] pathology results. Narrative 08/23/2024 2:32 PM EDT [facility] Patient Name: Loli Shah Procedure [...] Procedure Code(s): ? --- Professional --- ? 63202, 52, Colonoscopy, flexible; with removal of ? tumor(s), polyp(s), or other lesion(s) by snare ? technique Diagnosis Code(s): ? --- Professional --- ? Z86.010, Personal history of colonic polyps ? D12.5, Benign neoplasm of sigmoid colon CPT copyright 202 [employer]. All rights reserved. The codes documented in this report are preliminary and upon desk maker review may be revised to meet current compliance requirements. Ashley Henao MD 08/23/2024 2:32:26 PM This report has been signed electronically.Ashley Henao MD Number of Addenda: 0 Note Initiated On: 08/23/2024 2:19 PM Scope In: Scope Out: ? Endoscopy Department at [facility] - [address] [place] [address], ? [place] [address] Procedure Note Ashley Henao MD - 08/23/2024 [facility] Patient Name: Loli Shah Procedure [...] not prolapse). Procedure Code(s): --- Professional --- 86890, 52, Colonoscopy, flexible; with removal of tumor(s), polyp(s), or other lesion(s) by snare technique Diagnosis Code(s): --- Professional --- Z86.010, Personal history of colonic polyps D12.5, Benign neoplasm of sigmoid colon CPT copyright 2020 [employer]. All rights reserved. The codes documented in this report are preliminary and upon desk maker reviewmay be revised to meet current compliance requirements. Ashley Henao MD 08/23/2024 2:32:26 PM This report has been signed electronically.Ashley Henao MD Number of Addenda: 0 Note Initiated On: 08/23/2024 2:19 PM Scope In: Scope Out: Endoscopy Department at [address] [phone] IMPRESSION: - Two 3 to 5 mm [...] polyp(s) (three fragments). 08/27/2024 9:17 AM EDT [facility] Gross Description A. Large Intestine, Sigmoid Colon, polyp x2: Labeled sigmoid colon polyp x 2 . Received in formalin are three soft to rubbery, pearson-brown tissue fragments ranging from 0.6 cm to 1.5 cm, in greatest diameters, which are wrapped in paper and submitted in toto in one cassette, three pieces, multiple levels. dvb/DG 08/27/2024 9:17 AM EDT [facility] Disclaimer Unless otherwise specified, all tissue is 10% NB formalin fixed and paraffin embedded. 08/27/2024 9:17 AM EDT [facility] Tissue Sigmoid colon structure / Unknown 08/23/2024 2:30 PM EDT 08/23/2024 3:49 PM EDT Ashley Henao MD LAB PATHOLOGY ORDERABLES Final Result [facility] [address] [place] [address], documented in this encounter Visit Diagnoses Diagnosis Hx of colonic polyps Personal history of colonic polyps documented in this encounter Discontinued Medications Medication Sig Discontinue Reason Start Date End Da te bisacodyL (DULCOLAX) 5 mg EC tablet Take 2 tablets by mouth right before beginning bowel prep. See instructions provided by the office 08/09/2024 08/23/2024 polyethylene glycol (Golytely) 236-22.74-6.74 -5.86 gram solution Take 4L by mouth once for one dose. May substitue any PEG. Starting at 6PM the night before your procedure drink 1 8oz glasses at your own pace until you complete half of the gallon. Finish 2nd half of the gallon 5 hours before your procedure. 08/09/2024 08/23/2024 documented as of this encounter Historical Medications * This list may reflect changes made after this encounter. Zepbound 2.5 mg/0.5 mL injection Inject 0.5 mL (2.5 mg total) under the skin 1 (one) time per week. 07/23/2024 added in this encounter Orders Discharge Count Last Ordered Date First Orde red Date DISCHARGE PATIENT 1 08/23/2024 documented in this encounter Care Teams Automotive Accessory Installer Relationship Specialty Start Date End Date Herbie Huang DO [address] [place] [phone] PCP - General Internal Medicine 03/06/24 documented as of this encounter
--- OUTSIDE RECORDS SUMMARY | 2024-08-28 15:47 | XMS_ITS | Clinical Summary ---
Author Organization [facility] Address [address] [place] [address] Care Team Providers Care Bleach Plant Operator Name Role Phone Unavailable Primary Care Provider Unavailabl e Social History Tobacco Use Types Packs/Day Years Used Date Smoking Tobacco: Never Assessed Comments Unknown Sex and Gender Information Value Date Recorded Sex Assigned at Not on file Legal Sex Female 11:40 AM EDT Gender Identity Not on file Sexual Orientation Not on file Last Filed Vital Signs Vital Sign Reading Time Taken Comments Blood Pressure 119/76 07/30/2013 11:36 AM EDT Pulse 84 07/30/2013 11:36 AM EDT Temperature - - Respiratory Rate - - Oxygen Saturation - - Inhaled Oxygen Concentration - - Weight 109 kg (241 lb 0.1 oz) 07/30/2013 11:36 A M EDT Height 157.5 cm (5' 2 ) 06/27/2013 10:13 AM EDT Body Mass Index 44.08 06/27/2013 10:13 AM EDT Plan of Treatment Health Maintenance Due Date Last Done Comments Hepatitis C Virus Screening 1965 HIV Screening 1978 DTaP/Tdap/Td Vaccines (1 - Tdap) 1984 Hepatitis B Vaccines (1 of 3 - 19+ 3-dose series) 10/10 Pneumococcal Vaccines 50+ (1 of 1 - PCV) 10/29/2015 Zoster (Shingles) Vaccine (1 of 2) 10/29/2015 COVID-19 Vaccine ( season) 2023 Mammogram Discontinued 08/10/2013 Procedures Procedure Name Priority Date/Time Associated Diagnosis Comments DIGITAL MAMMO BILAT SCREENING ([facility])-W Routine 08/10/2013 10:01 AM EDT from Last 3 Months or Most Recently Relevant to Health Maintenance Results * DIGITAL MAMMO BILAT SCREENING ([facility])-W (08/10/2013 10:01 AM EDT) Anatomical Region Laterality Modality Other 08/10/2013 10:0 1 AM EDT Narrative 07/31/2013 1:03 PM EDT Final Report CLINICAL INDICATIONS: ?? DIGITAL MAMMO BILAT SCREENING [facility] 9005 - DIGITAL MAMMO BILAT SCREENING ??- Jul 31 2013 ??1:17PM ?? Acc#: [id number] RESULT: History: Routine annual screening mammography. No complaints. The self-reported mammography questionnaire indicates no current masses, nipple discharge or breast pain. Exam: Digital Bilateral CC and MLO screening mammograms. Comparison: 09/02/2005. Findings: The breasts demonstrate scattered fibroglandular densities (25%-50% glandular tissue). ??No suspicious masses or calcifications are visualized. This exam utilizes computer aided detection software for the evaluation of the images obtained. IMPRESSION: BI-RAD category I. ??Negative. ??No mammographic evidence of malignancy. Recommendations: 1. Recommend monthly breast self-examination. 2. Recommend annual clinical breast examination. 3. Recommend annual screening mammography. BI-RADS ASSESSMENT CATEGORIES Category 0 - Incomplete - Needs Additional Imaging Evaluation and/or Prior Views for Comparison Category 1 - Negative Category 2 - Benign Finding(s) Category 3 - Probably Benign Finding - Short Interval Follow-up Suggested Category 4 - Suspicious Abnormality - Biopsy Should Be Considered Category 5 - Highly Suggestive of Malignancy - Appropriate Action Should ??Be Taken Category 6 - Known Biopsy Proven Malignancy - Appropriate Action Should Be Taken Interpreting Physician: ??JEFF CAMARA M.D. Procedure Note Provider, MD Tracy - 07/29/2015 Final Report CLINICAL INDICATIONS: DIGITAL MAMMO BILAT SCREENING [facility] 9005 - DIGITAL MAMMO BILAT SCREENING - Jul 31 2013 1:17PM Acc#:[id number] RESULT: History: Routine annual screening mammography. No complaints.The self-reported mammography questionnaire indicates no current masses,nipple discharge or breast pain. Exam: Digital Bilateral CC and MLO screening mammograms. Comparison: 09/02/2005. Findings: The breasts demonstrate scattered fibroglandular densities (25%-50%glandular tissue). No suspicious masses or calcifications are visualized. This exam utilizes computer aided detection software for the evaluationof the images obtained. IMPRESSION: BI-RAD category I. Negative. No mammographic evidence of malignancy. Recommendations: 1. Recommend monthly breast self-examination. 2. Recommend annual clinical breast examination. 3. Recommend annual screening mammography. BI-RADS ASSESSMENT CATEGORIES Category 0 - Incomplete - Needs Additional Imaging Evaluation and/orPrior Views for Comparison Category 1 - Negative Category 2 - Benign Finding(s) Category 3 - Probably Benign Finding - Short Interval Follow-upSuggested Category 4 - Suspicious Abnormality - Biopsy Should Be Considered Category 5 - Highly Suggestive of Malignancy - Appropriate Action ShouldBe Taken Category 6 - Known Biopsy Proven Malignancy - Appropriate Action ShouldBe Taken Interpreting Physician: JEFF CAMARA M.D. us Conversion Provider MD [facility] Fin al Result from Last 3 Months or Most Recently Relevant to Health Maintenance
== END 2024-08-28 15:00 | disposition home or self-care (01) ==
LOC: HO.ENCR 14:21
PROVIDERS: PCP Internal Medicine; Visit Provider Student in an Organized Health Care Education/Training Program
DX: E05.90 Thyrotoxicosis, unspecified without thyrotoxic crisis or storm (principal); E01.0 Iodine-deficiency related diffuse (endemic) goiter
CPT/HCPCS: 99204

== ENCOUNTER 2024-08-30 13:56 | Outpatient (REF) | payer OTHER, SELFPAY ==
--- OUTSIDE RECORDS SUMMARY | 2024-08-30 14:14 | XMS_ITS | Encounter Summary ---
Author Organization [facility] Address [address] [place] [address] Care Team Providers Care Can Dryer Name Role Phone Herbie Huang Primary Care Provider [phone] Encounter Details Date Type Department Care Team ([facility] st Contact Info) Description 08/29/2024 Telephone Gastroenterology - [address] [facility] [address] [place] [phone] Ashley Henao MD [address] [place] [address] Social History Tobacco Use Types Packs/Day Years [...] as of this encounter Progress Notes * Irene Bhagat - 08/29/2024 10:45 AM EDT SCHEDULED * Irene Bhagat - 08/29/2024 10:41 AM EDT ----- Message from Kate Melton MA sent at 08/23/2024 3:10 PM EDT ----- ----- Message ----- From: Ashley Henao MD Sent: 08/23/2024 2:57 PM EDT To: Kate Simpson MA Please have patient reschedule colonoscopy- Is on Zepbound and was not told to stop. Tried to do without sedation. That was unsuccessful. Thanks ----- Message ----- From: Mary, Endo Results In Sent: 08/23/2024 2:32 PM EDT To: Ashley Henao MD documented in this encounter Plan of Treatment Upcoming Encounters Date Type Department Care Team (Late st Contact Info) Description 10/22/2024 2:00 PM EDT Appointment [facility] Endoscopy [address] [place] [phone] Ashley Henao MD [address] [address] documented as of this encounter Visit Diagnoses Not on filedocumented in this encounter Care Teams Can Dryer Relationship Specialty Start Date End Date Herbie Huang DO [address] [place] [phone] PCP - General Internal Medicine 03/06/24 documented as of this encounter
[2024-08-30 15:42] LABS: Free T4 (Free Thyroxine) 1.13 ng/dL (0.71-1.85); Thyroid Stimulating Hormone 0.11 uIU/mL (0.32-4.0)
[2024-08-31 03:59] LABS: Triiodothyronine T3 Total 101 ng/dL (76-181)
[2024-08-31 19:18] LABS: Thyroid Peroxidase Antibodies 1 IU/mL (<9)
[2024-09-02 20:29] LABS: Thyrotropin Receptor Antibody <1.00 IU/L (<=2.00)
[2024-09-05 14:39] LABS: Thyroid Stimulating Immunoglob <89 % baseline (<140)
== END 2024-08-30 13:57 | disposition home or self-care (01) ==
LOC: HO.LAB 13:56
PROVIDERS: PCP Internal Medicine; Visit Provider Student in an Organized Health Care Education/Training Program
DX: E05.90 Thyrotoxicosis, unspecified without thyrotoxic crisis or storm (principal)
CPT/HCPCS: 36415; 83520; 84439; 84443; 84445; 84480; 86376

== ENCOUNTER 2024-10-08 16:00 | Outpatient (REF) | payer OTHER, SELFPAY ==
--- NOTE | ~2024-10-08 | US_ITS ---
EXAMINATION: US THYROID HISTORY: E05.90 - Thyrotoxicosis, unspecified without thyrotoxic crisis or storm TECHNIQUE: Real-time grayscale ultrasound imaging was performed and images were reviewed. COMPARISON: There are no prior studies available for comparison. FINDINGS: SIZE: The right thyroid lobe measures 7.6 x 2.3 x 3.5 cm. The left thyroid lobe measures 6.8 x 2.3 x 4.0 cm. The isthmus measures 5 mm. FLOW: Flow to the gland is normal. ECHOGENICITY: The echotexture of the gland is heterogeneous. NODULES: Multiple nodules are identified as described below: Nodule #: 1 Location: Upper pole of the right thyroid lobe measuring 1.4 x 0.8 x 1.3 cm. Shape: Wider than tall (0 points) Margins: Smooth (0 points) Echotexture: Isoechoic (1 point) Composition: Solid (2 points) Calcifications: None (0 points) Total points: 3 TIRADS: TR3: Mildly suspicious. Nodule #: 2 Location: Lower pole of the right thyroid lobe measuring 1.0 x 0.9 x 1.2 cm. Shape: Wider than tall (0 points) Margins: Smooth (0 points) Echotexture: Isoechoic (1 point) Composition: Solid (2 points) Calcifications: None (0 points) Total points: 3 TIRADS: TR3: Mildly suspicious. Nodule #: 3 Location: Upper pole of the left thyroid lobe measuring 1.7 x 1.1 x 1.8 cm. Shape: Wider than tall (0 points) Margins: Smooth (0 points) Echotexture: Indeterminate (1 point) Composition: Mostly solid (2 points) Calcifications: Punctate calcifications (3 points) Total points: 6 TIRADS: TR4: Moderately suspicious. Nodule #: 4 Location: Midportion of the left thyroid lobe measuring 1.6 x 1.1 x 1.6 cm. Shape: Wider than tall (0 points) Margins: Ill-defined (0 points) Echotexture: Isoechoic (1 point) Composition: Mostly solid (2 points) Calcifications: None (0 points) Total points: 3 TIRADS: TR3: Mildly suspicious. US/US thyroid IMPRESSION: Multiple bilateral thyroid nodules as described above. According to ACR TI-RADS guidelines below, nodule #3 should undergo ultrasound-guided fine-needle aspiration. ACR TI-RADS Guidelines TR1 (0 points): Benign, No follow-up or biopsy required TR2 (2 points): Not Suspicious, No biopsy or follow up indicated TR3 (3 points): Mildly Suspicious, FNA if >= 2.5 cm, Follow if >= 1.5 cm TR4 (4-6 points): Moderately Suspicious, FNA if >= 1.5 cm, Follow if >= 1.0 cm TR5 (>=7 points): Highly Suspicious, FNA if >= 1.0 cm, Follow if >= 0.5 cm Electronically signed by: Desmond Valerio MD 10/09/2024 07:32 AM EDT
--- OUTSIDE RECORDS SUMMARY | 2024-10-08 16:03 | XMS_ITS ---
Author Name [facility] Organization Unknown Care Team Organization Name Specialty Phone Email Start Date End José Miguel santana [facility] 10/19/2022 10/19/2022
--- OUTSIDE RECORDS SUMMARY | 2024-10-08 16:03 | XMS_ITS | Clinical Summary ---
Author Organization [facility] Address [address] [place] [address] Care Team Providers Care Tree Trimmer Helper Name Role Phone Unavailable Primary Care Provider [...] 1:03 PM EDT Final Report CLINICAL INDICATIONS: DIGITAL MAMMO BILAT SCREENING [facility] 9005 - DIGITAL MAMMO BILAT SCREENING - Jul 31 2013 1:17PM Acc#: [id number] RESULT: History: Routine annual screening mammography. No complaints. The self-reported mammography questionnaire indicates no current masses, nipple discharge or breast pain. Exam: Digital Bilateral CC and MLO screening mammograms. Comparison: 09/02/2005. Findings: The breasts demonstrate scattered fibroglandular densities (25%-50% glandular tissue). No suspicious masses or calcifications are [...] Suggestive of Malignancy - Appropriate Action Should Be Taken Category 6 - Known Biopsy Proven Malignancy - Appropriate Action Should Be Taken Interpreting Physician: JEFF CAMARA M.D. Procedure Note Provider, MD Tracy - 07/29/2015 Final Report CLINICAL INDICATIONS: DIGITAL MAMMO BILAT SCREENING [facility] 9005 - DIGITAL MAMMO BILAT SCREENING - Jul 31 2013 1:17PM Acc#:[id number] RESULT: History: Routine annual screening mammography. No [...] Physician: JEFF CAMARA M.D. us Conversion Provider [facility] PROCEDURES Fin al Result from Last 3 Months or Most Recently Relevant to Health Maintenance
--- OUTSIDE RECORDS SUMMARY | 2024-10-08 16:04 | XMS_ITS | Clinical Summary ---
Author Organization [address] [facility] Address [address] [place] [phone] Phone Care Team Providers Care Authorization Nurse Name Role Phone Herbie Huang DO Primary Care Provider [phone] Allergies No known active allergies Medications atorvastatin (LIPITOR) 40 mg tablet Take 1 tablet (40 mg total) by mouth at bedtime. 11/13/2019 Active meloxicam (MOBIC) 7.5 mg tablet Take 1 tablet (7.5 mg total) by mouth 1 (one) time each day. Active albuterol HFA (PROVENTIL HFA;VENTOLIN HFA) 108 (90 Base) MCG/ACT inhaler Inhale 2 puffs by mouth every 4 (four) hours. Active Zepbound 2.5 mg/0.5 mL injection Inject 0.5 mL (2.5 mg total) under the skin 1 (one) time per week. 07/23/2024 Active Encounters Date Type Department Care Team Description 08/29/2024 Telephone Gastroenterology - [address] [phone] Ashley Henao MD 08/27/2024 Telephone Gastroenterology - [address] [phone] Kate Simpson MA 08/23/2024 1:48 PM EDT - 08/23/2024 11:59 PM EDT Hospital Encounter [facility] Endoscopy [address] [place] [phone] Ashley Henao MD Georgette, Nathaniel, CRNA Kriz, Petra, MD Hx of colonic polyps Discharge Disposition: Home or Self Care from Last 3 Months Surgical History Surgery [...] 86 08/23/2024 2:35 PM EDT Temperature 36.8 C (98.2 F) 08/23/2024 2:35 PM EDT Respiratory Rate 18 08/23/2024 2:35 PM EDT Oxygen Saturation 100% 08/23/2024 2:35 PM EDT Inhaled Oxygen Concentration - - Weight 74.4 kg (164 lb) 07/06/2024 7:58 AM EDT Height 157.5 cm (5' 2 ) 07/06/2024 7:58 AM EDT Body Mass Index 30 07/06/2024 7:58 AM EDT Plan of Treatment Health Maintenance Due Date Last Done Comments Hepatitis B Vaccines (1 of 3 - [...] 03/13/2022 Social Influencers of Health Screening 03/13/2022 Breast Cancer Screening 07/06/2026 07/06/2024, 04/13 Cholesterol [...] 8:14 AM EDT Visit for screening mammogram LIPID PANEL WITH REFLEX TO DIRECT LDL Routine 06/27/2024 8:29 AM EDT Routine general medical examination at a health care facility Impaired fasting glucose 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 ischemic heart disease 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 Hyperlipemia DM2 (diabetes mellitus, type 2) ([facility] V24, [facility] V28) Diabetes mellitus (CMS/HCC V24, CMS/[facility] V28) from Last 3 Months or Most Recently Relevant to Health Maintenance Results * COLONOSCOPY Anesthesia - MAC; [facility] ENDOSCOPY (08/23/2024 2:33 PM EDT) Anatomical Region Laterality Modality Endoscopy 08/23/2024 2:19 PM EDT Impressions 08/23/2024 2:32 PM EDT - Two 3 to 5 mm polyps in the sigmoid colon, removed with a cold snare. Resected and retrieved. - Internal hemorrhoids. Recommendation: - Repeat colonoscopy at appointment to be scheduled because the examination was incomplete. - Await pathology results. Narrative 08/23/2024 2:32 PM EDT [facility] GI Patient Name: Loli Shah Procedure Date: 08/23/2024 2:19 PM Date of : 1965 Age: 58 Gender: Female Note Status: Finalized Attending MD: Ashley Henao MD, Procedure Date No Time: 08/23/2024 Procedure: Colonoscopy Indications: High risk colon cancer surveillance: Personal history of traditional serrated adenoma of the colon Providers: Ashley Henao MD Referring MD: Herbie Huang DO Medicines: None, Patient was not told to stop Zebound prior to procedure. She had completed the prep so still wanted to try doing the colonoscopy without sedation. Complications: No immediate complications. Estimated Blood Loss: Estimated blood loss: none. Procedure: Pre-Anesthesia Assessment: - ASA Grade Assessment: II - A patient with mild systemic disease. After I obtained informed consent, the scope was passed under direct vision. Throughout the procedure, the patient's blood pressure, pulse, and oxygen saturations were monitored continuously.The Colonoscope was introduced through the anus with the intention of advancing to the ileum. The scope was advanced to the splenic flexure before the procedure was aborted due to patient discomfort. Medications were not given. The colonoscopy was performed without difficulty. The patient tolerated the procedure fairly well. The quality of the bowel preparation was excellent. Findings: The perianal and digital rectal examinations were normal. Two sessile polyps were found in the sigmoid colon. The polyps were 3 to 5 mm in size. These polyps were removed with a cold snare. Resection and retrieval were complete. Internal hemorrhoids were found during retroflexion. The hemorrhoids were Grade I (internal hemorrhoids that do not prolapse). Procedure Code(s): --- Professional --- 50682, 52, Colonoscopy, flexible; with removal of tumor(s), polyp(s), or other lesion(s) by snare technique Diagnosis Code(s): --- Professional --- Z86.010, Personal history of colonic polyps D12.5, Benign neoplasm of sigmoid colon CPT copyright 2020 [employer]. All rights reserved. The codes documented in this report are preliminary and upon turn down worker review may be revised to meet current compliance requirements. Ashley Henao MD 08/23/2024 2:32:26 PM This report has been signed electronically.Ashley Henao MD Number of Addenda: 0 Note Initiated On: 08/23/2024 2:19 PM Scope In: Scope Out: Endoscopy Department at [facility] - [address] [place] [phone] Procedure Note Ashley Henao MD - 08/23/2024 [facility] GI Patient Name: Loli Shah Procedure [...] not prolapse). Procedure Code(s): --- Professional --- 97906, 52, Colonoscopy, flexible; with removal of tumor(s), polyp(s), or other lesion(s) by snare technique Diagnosis Code(s): --- Professional --- Z86.010, Personal history of colonic polyps D12.5, Benign neoplasm of sigmoid colon CPT copyright 2020 [employer]. All rights reserved. The codes documented in this report are preliminary and upon turn down worker reviewmay be revised to meet current compliance requirements. Ashley Henao MD 08/23/2024 2:32:26 PM This report has been signed electronically.Ashley Henao MD Number of Addenda: 0 Note Initiated On: 08/23/2024 2:19 PM Scope In: Scope Out: Endoscopy Department at [facility] - [address] [place] [phone] IMPRESSION: - Two 3 to 5 mm [...] polyp(s) (three fragments). 08/27/2024 9:17 AM EDT [facility] Gross Description A. Large Intestine, Sigmoid Colon, polyp x2: Labeled sigmoid colon polyp x 2 . Received in formalin are three soft to rubbery, pearson-brown tissue fragments ranging from 0.6 cm to 1.5 cm, in greatest diameters, which are wrapped in paper and submitted in toto in one cassette, three pieces, multiple levels. dvb/DG 08/27/2024 9:17 AM EDT [facility] Disclaimer Unless otherwise specified, all tissue is 10% NB formalin fixed and paraffin embedded. 08/27/2024 9:17 AM EDT [facility] Tissue Sigmoid colon structure / Unknown 08/23/2024 2:30 PM EDT 08/23/2024 3:49 PM EDT Ashley Henao MD LAB PATHOLOGY ORDERABLES Final Result [facility] [address] [place] [address], * MG Mammo Digital Screening w Yovani bilat (07/06/2024 8:14 AM EDT) Anatomical Region Laterality Modality Breast Bilateral Mammography 07/10/2024 4:50 PM EDT Impressions 07/10/2024 4:56 PM EDT No evidence of breast malignancy BI-RADS CATEGORY: 1 - NEGATIVE RECOMMENDATION: Screening bilateral mammogram is recommended in 1 year. Mammo Location: [facility], [address] [place] [address], [id number], . -------- FINAL REPORT -------- Dictated By: Valerie Leonardo Dictated Date: 07/10/2024 16:50 ET Assigned Physician: Valerie Leonardo Reviewed and Electronically Signed By: Valerie Leonardo Signed Date: 07/10/2024 16:56 ET Workstation ID: [id number] Transcribed By: Self Edit Transcribed Date: 07/10/2024 16:50 ET Narrative 07/10/2024 4:56 PM EDT CLINICAL: 58 years old, Female, routine annual exam. COMPARISON: 04/13/2018 and 04/08/2017 TECHNIQUE: Bilateral MLO and CC views were obtained digitally with 3-D mammogram (digital breast tomosynthesis). Computer-aided detection was utilized in evaluation of this exam (CAD). FINDINGS: There is no evidence of suspicious mass or architectural distortion. No worrisome calcifications are evident. There has been no significant change from prior exam(s). Stable biopsy marker in [...] year. Mammo Location: [facility], [address] [place] [address], [id number], . -------- FINAL REPORT -------- Dictated By: Valerie Leonardo Dictated Date: 07/10/2024 16:50 ET Assigned Physician: Valerie Leonardo Reviewed and Electronically Signed By: Valerie Leonardo Signed Date: 07/10/2024 16:56 ET Workstation ID: [id number] Transcribed By: Self Edit Transcribed Date: 07/10/2024 16:50 ET us Herbie Huang DO IMG BI PROCEDURES Final Resul t * Lipid panel with reflex to direct LDL (06/27/2024 8:29 AM EDT) Cholesterol 154 0 - 200 mg/dL LAB CHEMISTRY METHOD 06/27/2024 12:23 PM EDT [facility] Triglycerides 85 0 - 150 mg/dL LAB CHEMISTRY METHOD 06/27/2024 12:23 PM EDT [facility] HDL 43 >=40 mg/dL LAB CHEMISTRY METHOD 06/27/2024 12:23 PM EDT [facility] LDL Calculated 94 0 - 100 mg/dL LAB CHEMISTRY METHOD 06/27/2024 12:23 PM EDT [facility] VLDL Cholesterol Bebo 17 mg/dL LAB CHEMISTRY METHOD 06/27/2024 12:23 PM EDT [facility] Non HDL Chol. (LDL+VLDL) 111 <145 mg/dL LAB CHEMISTRY METHOD 06/27/2024 12:23 PM EDT [facility] Chol/HDL Ratio 3.6 0.0 - 4.4 LAB CHEMISTRY METHOD 06/27/2024 12:23 PM EDT [facility] Blood Venous blood specimen / Unknown Venipuncture / Unknown 06/27/2024 8:29 AM EDT 06/27/2024 8:29 AM EDT us Patiño Petersen SOUND ART INSTRUCTOR LAB BLOOD ORDERABLES Final Resul t [facility] [address] [place] [address], from Last 3 Months or Most Recently Relevant to Health Maintenance Insurance [employer] [facility] Care Teams Authorization Nurse Relationship Specialty Start Date End Date Herbie Huang DO [address] [place] [phone] PCP - General Internal Medicine 03/06/24
== END 2024-10-08 16:01 | disposition home or self-care (01) ==
LOC: HO.US 16:00
PROVIDERS: PCP Internal Medicine; Visit Provider Student in an Organized Health Care Education/Training Program
DX: E05.90 Thyrotoxicosis, unspecified without thyrotoxic crisis or storm (principal); E01.0 Iodine-deficiency related diffuse (endemic) goiter
CPT/HCPCS: 76536

== ENCOUNTER → 2024-10-08 16:04 | Outpatient (BNV) | payer OTHER, SELFPAY | PROVIDERS: PCP Internal Medicine; Visit Provider Radiology Diagnostic Radiology | DX: E04.2 Nontoxic multinodular goiter (principal) | CPT/HCPCS: 76536 ==

== ENCOUNTER → 2024-11-15 09:16 | Outpatient (REF) | payer OTHER, SELFPAY ==
--- NOTE | ~2024-11-15 | NM_ITS ---
EXAMINATION: NV THYROID IMAGING AND UPTAKE CLINICAL INFORMATION: E05.90 - Thyrotoxicosis, unspecified without thyrotoxic crisis or storm COMPARISON: Correlation is made with a thyroid ultrasound dated 10/08/2024. TECHNIQUE: Following the oral administration of 300 microcuries of I-123 sodium iodide, thyroid uptake was performed and expressed as a percentage of the administrated dose. Gamma scintillation camera images of the thyroid in the anterior and right and left anterior oblique views were obtained using a pinhole collimator following the administration of 10 mCi Tc-99m pertechnetate. FINDINGS: The gland is diffusely enlarged. No definite foci of abnormal increased or decreased uptake are identified on the right. On the left, there is a focus of increased uptake at the extreme upper pole likely corresponding to the moderately suspicious nodule seen in this location on ultrasound (nodule #3). There is a probable cold defect in the midportion of the left thyroid lobe, likely corresponding to the nodule seen in this location on ultrasound (nodule #4). The uptake is 11.5% at 4 hours and 35.38% at 24 hours. NM/NV thyroid w uptake IMPRESSION: 1. Findings consistent with a hot nodule at the upper pole of the left thyroid lobe corresponding to the nodule seen on ultrasound. 2. Probable cold nodule in the midportion of the left thyroid lobe corresponding to the nodule seen on ultrasound. 3. The 24-hour uptake is at the upper limits of normal. Electronically signed by: Desmond Valerio MD 11/16/2024 10:11 AM EDT
--- OUTSIDE RECORDS SUMMARY | 2024-11-15 09:40 | XMS_ITS | Clinical Summary ---
Author Organization 200 [facility] Address [address] [place] [phone] Phone Care Team Providers Care [employer] Web Developer Name Role Phone Herbie Huang DO Primary Care Provider [phone] Allergies No known active allergies Medications atorvastatin (LIPITOR) 40 mg tablet Take 1 tablet (40 mg total) by mouth at bedtime. 11/13/19 20 Active meloxicam (MOBIC) 7.5 mg tablet Take 1 tablet (7.5 mg total) by mouth 1 (one) time each day. Active Zepbound 2.5 mg/0.5 mL injection Inject 0.5 mL (2.5 mg total) under the skin 1 (one) time per week. 07/24/19 25 Active polyethylene glycol (Golytely) 236-22.74-6.74 -5.86 gram solution Take 4L by mouth once for one dose. May substitue any PEG. Starting at 2PM the day before your procedure drink 1 8oz glasses at your own pace until you complete half of the gallon. Finish 2nd half of the gallon at 8PM. 4000 mL 10/30/19 25 Active bisacodyL (DULCOLAX) 5 mg EC tablet Take 2 tablets by mouth right before beginning bowel prep. See instructions provided by the office 2 tablet 10/30/19 25 Active albuterol HFA (PROVENTIL HFA;VENTOLIN HFA) 108 (90 Base) MCG/ACT inhaler Inhale 2 puffs by mouth every 4 (four) hours. 025 Discontinued Encounters Date Type Department Care Team Description 11/02/2024 Telephone Gastroenterology - [address] [place] [phone] Kate Simpson MA 10/31/2024 12:49 PM EDT Anesthesia Event [facility] [address] [place] [address] Lonny Barton DO Steele, Matthew G, CRNA 10/31/2024 12:05 PM EDT - 10/31/2024 11:59 PM EDT Hospital Encounter [facility] [address] [place] [address] Ashley Henao MD Steele, Matthew G, CRNA Walsh, Michael, DO Hx of colonic polyps Discharge Disposition: Home or Self Care 10/29/2024 Telephone Gastroenterology - [address] [place] [phone] Ashley Henao MD 10/19/2024 Telephone Gastroenterology - [address] [place] [phone] Ashley Henao MD 08/29/2024 Telephone Gastroenterology - [address] [place] [phone] Ashley Henao MD 08/27/2024 Telephone Gastroenterology - [address] [facility] [address] [place] [phone] Kate Simpson MA 08/23/2024 1:48 PM EDT - 08/23/2024 11:59 PM EDT Hospital Encounter [facility] [address] [place] [address] Ashley Henao MD Georgette, Nathaniel, CRNA Kriz, [...] Safety Answer Date Record ed Physical Abuse 10/31/2024 Verbal Abuse 10/31/2024 Comments No Sex and Gender Information Value [...] Sign Reading Time Taken Comments Blood Pressure 133/97 10/31/2024 1:26 PM EDT Pulse 76 10/31/2024 1:26 PM EDT Temperature 36.4 C (97.6 F) 10/31/2024 12:26 PM EDT Respiratory Rate 16 10/31/2024 1:26 PM EDT Oxygen Saturation 99% 10/31/2024 1:26 PM EDT Inhaled Oxygen Concentration - - Weight 111 kg (245 lb) 10/24/2024 10:00 AM EDT Height 157.5 cm (5' 2 ) 10/24/2024 10:00 AM EDT Body Mass Index 44.81 10/24/2024 10:00 AM EDT Plan of Treatment Health Maintenance Due Date Last Done Comments Diabetes: Annual Foot Exam 10/29/1975 Diabetes: Annual Retina Eye Exam 10/29/1975 Hepatitis B Vaccines (1 of 3 - 19+ 3-dose series) 1984 Pneumococcal Vaccine: 50+ Years (1 of 2 - PCV) 1984 Cervical Cancer Screening: Pap Smear 1986 Zoster Vaccines (1 of 2) 10/29/2015 DTaP,Tdap,and Td Vaccines (2 - Td or Tdap) 04/18/2017 04/18/2007 HIV Screening 03/13/2022 Hepatitis C Screening 03/13/2022 Social Influencers of Health Screening 03/13/2022 Depression Screening 04/11/2024 Influenza Vaccine (#1) 2024 , 02/16/2023, 01/26/2022, Additional history exists Diabetes: Blood Sugar Control Test (HGBA1C) 05/01/2025 10/29/2024, 06/27/2024 Diabetes: Annual Urine Albumin-Creatinine Ratio (uACR) 06/27/2025 06/27/2024 Diabetes: Annual GFR (Glomerular Filtration Rate) 10/29/2025 10/29/2024, 06/27/2024 Breast Cancer Screening 07/06/2026 07/06/2024, 04/13 Cholesterol Screening (Lipid Panel) 10/29/2029 10/29/2024, 06/27/2024 Colorectal Cancer Screening: Colonoscopy 10/31/2034 10/31/2024, 08/23/2024, 05/10/2017 RSV Immunization Adult Patients (1 - 1-dose 75+ series) 2040 COVID-19 Vaccine Completed 12/31/2023, 11/2022, 01/13/2021, Additional history exists HIB Vaccines Aged Out [...] Priority Date/Time Associated Diagnosis Comments COLONOSCOPY Routine 10/31/2024 1:05 PM EDT Hx of colonic polyps TISSUE EXAM Routine 10/31/2024 1:00 PM EDT Hx of colonic polyps HEMOGLOBIN A1C Routine 10/29/2024 2:45 PM EDT Obesity, unspecified Pretibial myxedema Hyperlipemia Diabetes mellitus (CMS/HCC V24, CMS/HCC V28) BASIC METABOLIC PANEL Routine 10/29/2024 2:45 PM EDT Obesity, unspecified Pretibial myxedema Hyperlipemia Diabetes mellitus (CMS/HCC V24, CMS/HCC V28) CREATINE KINASE Routine 10/29/2024 2:45 PM EDT Obesity, unspecified Pretibial myxedema Hyperlipemia Diabetes mellitus (CMS/HCC V24, CMS/HCC V28) ASPARTATE AMINOTRANSFERASE Routine 10/29/2024 2:45 PM EDT Obesity, unspecified Pretibial myxedema Hyperlipemia Diabetes mellitus (CMS/HCC V24, CMS/HCC V28) ALANINE AMINOTRANSFERASE Routine 2:45 PM EDT Obesity, unspecified Pretibial myxedema Hyperlipemia Diabetes mellitus (CMS/HCC V24, CMS/HCC V28) LIPID PANEL WITH REFLEX TO DIRECT LDL Routine 10/29/2024 2:45 PM EDT Obesity, unspecified Pretibial myxedema Hyperlipemia Diabetes mellitus (CMS/HCC V24, CMS/HCC V28) COLONOSCOPY Routine 08/23/2024 2:33 PM EDT Hx of colonic polyps TISSUE EXAM Routine 08/23/2024 2:30 PM EDT Hx of colonic polyps MG MAMMO DIGITAL SCREENING W YOVANI BILAT Routine 07/06/2024 8:14 AM EDT Visit for screening mammogram MICROALBUMIN CREATININE URINE RATIO Routine 06/27/2024 8:29 AM EDT Routine general medical examination at a [facility] Impaired fasting glucose 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 ischemic heart disease 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 Hyperlipemia DM2 (diabetes mellitus, type 2) (CMS/HCC V24, CMS/HCC V28) Diabetes mellitus (CMS/HCC V24, CMS/HCC V28) from Last 3 Months or Most Recently Relevant to Health Maintenance Results * COLONOSCOPY Anesthesia - MAC; [facility] (10/31/2024 1:05 PM EDT) Only the most recent of2 resultswithin the time period is included. Anatomical Region Laterality Modality Endoscopy 10/31/2024 12:3 7 PM EDT Impressions 10/31/2024 1:07 PM EDT - The examined portion of the ileum was normal. - One 2 mm polyp in the ascending colon, removed with a cold snare. Resected and retrieved. - Internal hemorrhoids. - The examination was otherwise normal. Recommendation: - Await pathology results. - Repeat colonoscopy for surveillance based on pathology results. Narrative 10/31/2024 1:07 PM EDT [facility] Patient Name: Loli Shah Procedure Date: 10/31/2024 12:37 PM Date of : 1965 Age: 59 Gender: Female Note Status: Finalized Attending MD: Ashley Henao MD, Procedure Date No Time: 10/31/2024 Procedure: Colonoscopy Indications: High risk colon cancer surveillance: Personal history of traditional serrated adenoma of the colon Providers: Ashley Henao MD Referring MD: Herbie Huang DO Medicines: Propofol per Anesthesia Complications: No immediate complications. Estimated Blood Loss: Estimated blood loss: none. Procedure: Pre-Anesthesia Assessment: - ASA Grade Assessment: II - A patient with mild systemic disease. After I obtained informed consent, the scope was passed under direct vision. Throughout the procedure, the patient's blood pressure, pulse, and oxygen saturations were monitored continuously.The Colonoscope was introduced through the anus and advanced to the terminal ileum. The colonoscopy was performed without difficulty. The patient tolerated the procedure well. The quality of the bowel preparation was good. Findings: The perianal and digital rectal examinations were normal. The terminal ileum appeared normal. A 2 mm polyp was found in the ascending colon. The polyp was sessile. The polyp was removed with a cold snare. Resection and retrieval were complete. Internal hemorrhoids were found during retroflexion. The hemorrhoids were Grade I (internal hemorrhoids that do not prolapse). The exam was otherwise without abnormality. Procedure Code(s): --- Professional --- 55084, Colonoscopy, flexible; with removal of tumor(s), polyp(s), or other lesion(s) by snare technique Diagnosis Code(s): --- Professional --- Z86.010, Personal history of colonic polyps D12.2, Benign neoplasm of ascending colon CPT copyright 2020 [employer]. All rights reserved. The codes documented in this report are preliminary and upon reactor operator review may be revised to meet current compliance requirements. Ashley Henao MD 10/31/2024 1:07:32 PM This report has been signed electronically.Ashley Henao MD Number of Addenda: 0 Note Initiated On: 10/31/2024 12:37 PM Scope In: Scope Out: Endoscopy Department at [facility] - [address] [place] [phone] Procedure Note Ashley Henao MD - 10/31/2024 [facility] Patient Name: oLli Shah Procedure Date: 10/31/2024 12:37 PM Date of : 1965 Age: 59 Gender: Female Note Status: Finalized Attending MD: Ashley Henao MD, Procedure Date No Time: 10/31/2024 Procedure: Colonoscopy Indications: High risk colon cancer surveillance: Personalhistory of traditional serrated adenoma of the colon Providers: Ashley Henao MD Referring MD: Herbie Huang DO Medicines: Propofol per Anesthesia Complications: No immediate complications. Estimated Blood Loss: Estimated blood loss: none. Procedure: Pre-Anesthesia Assessment: - ASA Grade Assessment: II - A patient with mild systemic disease. After I obtained informed consent, the scope was passed under direct vision. Throughout theprocedure, the patient's blood pressure, pulse, and oxygen saturations were monitored continuously.The Colonoscope was introduced through the anus and advanced to the terminal ileum. The colonoscopy was performed without difficulty. The patient tolerated the procedure well. The quality of the bowel preparation was good. Findings: The perianal and digital rectal examinations were normal. The terminal ileum appeared normal. A 2 mm polyp was found in the ascending colon. The polyp was sessile. The polyp was removed with acold snare. Resection and retrieval were complete. Internal hemorrhoids were found duringretroflexion. The hemorrhoids were Grade I (internal hemorrhoids that do not prolapse). The exam was otherwise without abnormality. Procedure Code(s): --- Professional --- 10830, Colonoscopy, flexible; with removal of tumor(s), polyp(s), or other lesion(s) by snare technique Diagnosis Code(s): --- Professional --- Z86.010, Personal history of colonic polyps D12.2, Benign neoplasm of ascending colon CPT copyright 2020 [employer]. All rights reserved. The codes documented in this report are preliminary and upon reactor operator reviewmay be revised to meet current compliance requirements. Ashley Henao MD 10/31/2024 1:07:32 PM This report has been signed electronically.Ashley Henao MD Number of Addenda: 0 Note Initiated On: 10/31/2024 12:37 PM Scope In: Scope Out: Endoscopy Department at [facility] - [address] [place] [phone] IMPRESSION: - The examined portion of the ileum was normal. - One 2 mm polyp in the ascending colon, removedwith a cold snare. Resected and retrieved. - Internal hemorrhoids. - The examination was otherwise normal. Recommendation: - Await pathology results. - Repeat colonoscopy for surveillance based on pathology results. Ashley Henao MD GI~PROCEDURE ORDERABLES Final Result * Tissue exam (10/31/2024 1:00 PM EDT) Only the most recent of2 resultswithin the time period is included. Final Diagnosis Polyp, ascending colon, polypectomy: - Colonic mucosa with a prominent lymphoid aggregate and features suggestive of a hyperplastic polyp. (See note.) Note: Multiple additional levels are examined. 11/02/2024 8:54 AM EDT [facility] ([facility]) [facility] Gross Description A. Large Intestine, Right/Ascending Colon, polyp: Labeled ascending colon polyp . Received in formalin are three irregular pearson mucosal tissue fragments, each measuring approximately 0.3 cm in greatest dimension, which are wrapped in paper and submitted in toto in one cassette, three pieces, multiple levels on one slide. OWEN 11/02/2024 8:54 AM EDT [facility] Disclaimer Unless otherwise specified, all tissue is 10% NB formalin fixed and paraffin embedded. 11/02/2024 8:54 AM EDT [facility] Tissue Ascending colon structure / Unknown 10/31/2024 1:00 PM EDT 10/31/2024 1:36 PM EDT us Ashley Henao MD LAB PATHOLOGY ORDERABLES Final Result [facility] [address] [place] [address], [place] [phone] * (ABNORMAL) Lipid panel with reflex to direct LDL (10/29/2024 2:45 PM EDT) Cholesterol 170 0 - 200 mg/dL LAB CHEMISTRY METHOD 10/29/2024 7:52 PM EDT [facility] Triglycerides 132 0 - 150 mg/dL LAB CHEMISTRY METHOD 10/29/2024 7:52 PM [facility] HDL 43 >=40 mg/dL LAB CHEMISTRY METHOD 10/29/2024 7:52 PM EDT [facility] LDL Calculated 101(H) 0 - 100 mg/dL LAB CHEMISTRY METHOD 10/29/2024 7:52 PM [facility] VLDL Cholesterol Bebo 26.4 mg/dL LAB CHEMISTRY METHOD 10/29/2024 7:52 PM EDT [facility] Non HDL Chol. (LDL+VLDL) 127 <145 mg/dL LAB CHEMISTRY METHOD [facility]24 7[facility] Chol/HDL Ratio 4.0 0.0 - 4.4 LAB CHEMISTRY METHOD 10/29/2024 7:52 PM EDT [facility] Blood Venous blood specimen / Unknown Venipuncture / Unknown 10/29/2024 2:45 PM EDT 10/29/2024 2:45 PM EDT us Patiño Petersen [employer] [employer] LAB BLOOD ORDERABLES Final Resul t Performing Organization Address [facility] Co de Phone Number [facility] [address] [place] [address], [place] [phone] * Alanine aminotransferase (10/29/2024 2:45 PM EDT) ALT (SGPT) 20 10 - 60 unit/L LAB CHEMISTRY METHOD 10/29/2024 7:52 PM EDT [facility] Blood Venous blood specimen / Unknown Venipuncture / Unknown 10/29/2024 2:45 PM EDT 10/29/2024 2:45 PM EDT us Patiño Petersen [facility] [employer] LAB BLOOD ORDERABLES Final Resul t Performing Organization Address [facility] de Phone Number [facility] [address] [place] [address], [place] [phone] * (ABNORMAL) Aspartate aminotransferase (10/29/2024 2:45 PM EDT) AST (SGOT) 9(L) 10 - 42 unit/L LAB CHEMISTRY METHOD 10/29/2024 7:52 PM EDT [facility] Blood Venous blood specimen / Unknown Venipuncture / Unknown 10/29/2024 2:45 PM EDT 10/29/2024 2:45 PM EDT us Patiño Petersen [facility] [employer] LAB BLOOD ORDERABLES Final Resul t Performing Organization Address [facility] Co de Phone Number [facility] [address] [place] [address], [place] [phone] * (ABNORMAL) Hemoglobin A1c (10/29/2024 2:45 PM EDT) [facility] Hemoglobin A1C 6.6(H) <6.5 % LAB CHEMISTRY METHOD 10/30/2024 10:55 AM EDT [facility] Mean Bld Glu Estim. 143 mg/dL LAB CHEMISTRY METHOD 10/30/2024 10:55 AM EDT [facility] Blood Venous blood specimen / Unknown Venipuncture / Unknown 10/29/2024 2:45 PM EDT 10/29/2024 2:45 PM EDT us Patiño Petersen [facility] [employer] LAB BLOOD ORDERABLES Final Resul t Performing Organization Address [facility]/ZIP Co de Phone Number [facility] [address] [place] [address], [place] [phone] * Creatine kinase (10/29/2024 2:45 PM EDT) [facility] Total CK 149 22 - 269 unit/L LAB CHEMISTRY METHOD 10/29/2024 7:52 PM EDT [facility] Blood Venous blood specimen / Unknown Venipuncture / Unknown 10/29/2024 2:45 PM EDT 10/29/2024 2:45 PM EDT us Kaylyn Petersen [facility] [employer] LAB BLOOD ORDERABLES Final Resul t Performing Organization Address City/[facility]/ZIP Co de Phone Number [facility] [address] [place] [address], [place] [phone] * (ABNORMAL) Basic metabolic panel (10/29/2024 2:45 PM EDT) [facility] Sodium 140 133 - 145 mmol/L LAB CHEMISTRY METHOD 10/29/2024 7:52 PM EDT [facility] Potassium 3.9 3.5 - 5.5 mmol/L LAB CHEMISTRY METHOD 10/29/2024 7:52 PM EDT [facility] Chloride 110 96 - 110 mmol/L LAB CHEMISTRY METHOD 10/29/2024 7:52 PM EDT [facility] CO2 27 21 - 32 mmol/L LAB CHEMISTRY METHOD 10/29/2024 7:52 PM EDT [facility] Anion Gap 3 3 - 11 LAB CHEMISTRY METHOD 10/29/2024 7:52 PM EDT [facility] Glucose 107(H) 70 - 100 mg/dL LAB CHEMISTRY METHOD 10/29/2024 7:52 PM EDT [facility] BUN 7 5 - 25 mg/dL LAB CHEMISTRY METHOD 10/29/2024 7:52 PM EDT [facility] Creatinine 0.80 0.50 - 1.10 mg/dL LAB CHEMISTRY METHOD 10/29/2024 7:52 PM EDT [facility] eGFR 85 >=60 mL/min/1. 73m2 LAB CHEMISTRY METHOD 10/29/2024 7:52 PM EDT [facility] Comment:Calculation based on the Chronic Kidney Disease Epidemiology Collaboration (CKD-EPI) equation refit without adjustment for race. BUN/Creatinine Ratio 8.8 LAB CHEMISTRY METHOD 10/29/2024 7:52 PM EDT [facility] Calcium 9.1 8.5 - 10.5 mg/dL LAB CHEMISTRY METHOD 10/29/2024 7:52 PM EDT [facility] Blood Venous blood specimen / Unknown Venipuncture / Unknown 10/29/2024 2:45 PM EDT 10/29/2024 2:45 PM EDT us Patiño Petersen [facility] [employer] LAB BLOOD ORDERABLES Final Resul t [facility] [address] [place] [address], * MG Mammo Digital Screening w Yovani bilat (07/06/2024 8:14 AM EDT) Anatomical Region Laterality Modality Breast Bilateral Mammography 07/10/2024 4:50 PM EDT Impressions 07/10/2024 4:56 PM EDT No evidence of breast malignancy BI-RADS CATEGORY: 1 - NEGATIVE RECOMMENDATION: Screening bilateral mammogram is recommended in 1 year. Mammo Location: [facility], [address] [place] [address], [id number], . -------- FINAL REPORT -------- Dictated By: Valerie Leonardo Dictated Date: 07/10/2024 16:50 ET Assigned Physician: Valerie Leonardo Reviewed and Electronically Signed By: Valerie Leonardo Signed Date: 07/10/2024 16:56 ET Workstation ID: [id number] Transcribed By: Self Edit Transcribed Date: 07/10/2024 [...] year. Mammo Location: [facility], [address] [place], [place], [address], . -------- FINAL REPORT -------- Dictated By: Valerie Leonardo Dictated Date: 07/10/2024 16:50 ET Assigned Physician: Valerie Leonardo Reviewed and Electronically Signed By: Valerie Leonardo Signed Date: 07/10/2024 16:56 ET Workstation ID: [id number] Transcribed By: Self Edit Transcribed Date: 07/10/2024 16:50 ET us Herbie Huang DO IMG BI PROCEDURES Final Resul t * Microalbumin creatinine urine ratio (06/27/2024 8:29 AM EDT) Creatinine, Urine 290.0 mg/dL LAB CHEMISTRY METHOD 06/27/2024 12:46 PM EDT [facility] Microalb, Ur 16.2 0.0 - 29.0 mg/L LAB CHEMISTRY METHOD 06/27/2024 12:46 PM EDT [facility] Microalb/Creat Ratio 6 <30 mg/g creat LAB CHEMISTRY METHOD 06/27/2024 12:46 PM EDT [facility] Urine Urine specimen obtained by clean catch procedure / Unknown Non-blood Collection / Unknown 06/27/2024 8:29 AM EDT 06/27/2024 8:29 AM EDT us Patiño Petersen [facility] [employer] LAB URINE ORDERABLES Final Resul t [facility] [address] [place] [address], from Last 3 Months or Most Recently Relevant to Health Maintenance Insurance [employer] Care Teams [employer] Web Developer Relationship Specialty Start Date End Date Herbie Huang DO [address] [place] [phone] PCP - General Internal Medicine 03/06/24
--- OUTSIDE RECORDS SUMMARY | 2024-11-15 09:40 | XMS_ITS | Clinical Summary ---
Author Organization [facility] Address [address] [place] [address] Care Team Providers Care Inspector [employer] Name Role Phone Unavailable Primary Care Provider [...] Report CLINICAL INDICATIONS: DIGITAL MAMMO BILAT SCREENING [facility] 9005 - DIGITAL MAMMO BILAT SCREENING - Jul 31 2013 1:17PM Acc#: [id number] RESULT: History: Routine annual screening mammography. No [...] Report CLINICAL INDICATIONS: DIGITAL MAMMO BILAT SCREENING [facility] 9005 - DIGITAL MAMMO BILAT SCREENING - Jul 31 2013 1:17PM Acc#:[id number] RESULT: History: Routine annual screening mammography. No [...]
== END ==
LOC: HO.NUCMED 09:16
PROVIDERS: PCP Internal Medicine; Visit Provider Student in an Organized Health Care Education/Training Program
DX: E05.10 Thyrotoxicosis with toxic single thyroid nodule without thyrotoxic crisis or storm (principal)
CPT/HCPCS: 78014; A9512; A9516

== ENCOUNTER → 2024-11-15 09:19 | Outpatient (BNV) | payer OTHER, SELFPAY | PROVIDERS: PCP Internal Medicine; Visit Provider Radiology Diagnostic Radiology | DX: E05.90 Thyrotoxicosis, unspecified without thyrotoxic crisis or storm (principal) | CPT/HCPCS: 78014 ==

== ENCOUNTER 2024-11-20 10:59 | Outpatient (AMB) | payer OTHER, SELFPAY ==
[2024-11-20 11:01] VITALS: BP 122/68; PULSE 94; O2SAT 98; BMI 45.7
--- NOTE | 2024-11-20 11:01 | MHC.OFFVIS ---
Vital Signs 11/20/24 11:01 Height 5 ft 2 in Weight 249 lb 12.54 oz BMI 45.7 BP 122/68 Blood Pressure Location Lt brachial Position Sitting Pulse 94 Pulse Source Pulse Oximeter Pulse Oximetry (%) 98 Oxygen Delivery Method Room Air Intake Visit Reasons: Hyperthyroidism Intake Note: Patient present today for Hyperthyroidism office visit. Manager Strategy Required: No Accompanied by: Self / Same As Patient Allergies No Known Allergies Allergy (Verified 11/20/24 11:05) Medication List - Last Reconciled 11/20/24 by Rosemarie Mart MD atorvastatin 40 mg PO DAILY meloxicam 7.5 mg PO DAILY tirzepatide (weight loss) (Zepbound) 2.5 mg subcut QWEEK HPI Comments Details: 58-year-old female coming in today for follow up of hyperthyroidism. Was being seen by endo at [facility] some 3-4 years ago . Diagnosed sometime in . Was never started on medication per patient . Per PCP notes she used to be on methimazole. Thinks she had an US and maybe an uptake and scan. Patient currently denies heat or cold intolerance, diarrhea or constipation, hair loss, palpitation, anxiety, weight changes, mood changes, low energy, changes in appearance of eyes or vision changes, tremors, increased diaphoresis or dry skin. ? Patient denies any difficulty swallowing, pain on swallowing or voice changes or difficulty breathing. Patient denies any history of childhood neck radiation. Denies having ever used lithium, amiodarone or biotin supplements. Patient denies any family history of thyroid cancer or thyroid disease. Interval history 08/30/2024: TSH 0.11, free T4 1.13, total T3 101, TSI less than 89, TPO and TSH receptor antibodies undetectable 10/08/2024: Ultrasound with the thyroid I reviewed the images myself which showed a right superior 1.4 cm solid isoechoic TR 3 nodule, meets criteria for follow up. A right lower pole 1.2 cm solid isoechoic TR 3 nodule. A left superior 1.8 cm solid hypoechoic nodule with punctate echogenic foci, TR 4/5 category. Meets criteria for FNA. A left midpole 1.6 cm solid isoechoic TR 3 nodule. This meets criteria for follow up. 11/15/2024: Thyroid uptake and scan shows mildly increased uptake with a heterogenous appearance. Left superior nodule corresponds to a hot nodule. Cold defect in the midportion of the left lobe corresponding to the left mid lobe nodule. Physical exam General: sitting comfortably in no acute distress HEENT: normocephalic/atraumatic, EOM intact, moist oral mucosa Neck: supple, , palpable 1 cm right-sided nodule, enlarged thyroid gland Cardiac: normal heart sounds Pulm: normal breath sounds B/L, no added breath sounds Abd: not distended, no tenderness Extremities: no edema, no signs of myxedema Laboratory Tests 08/30/24 14:22 TSH 0.11 L Free T4 1.13 Total T3 101 Thyroid Stim Immunoglob <89 Thyroid Peroxidase Ab 1 TSH Receptor Ab <1.00 EXAMINATION: NM THYROID IMAGING AND UPTAKE 11/15/24 CLINICAL INFORMATION: E05.90 - Thyrotoxicosis, unspecified without thyrotoxic crisis or storm COMPARISON: Correlation is made with a thyroid ultrasound dated 10/08/2024. TECHNIQUE: Following the oral administration of 300 microcuries of I-123 sodium iodide, thyroid uptake was performed and expressed as a percentage of the administrated dose. Gamma scintillation camera images of the thyroid in the anterior and right and left anterior oblique views were obtained using a pinhole collimator following the administration of 10 mCi Tc-99m pertechnetate. FINDINGS: The gland is diffusely enlarged. No definite foci of abnormal increased or decreased uptake are identified on the right. On the left, there is a focus of increased uptake at the extreme upper pole likely corresponding to the moderately suspicious nodule seen in this location on ultrasound (nodule #3). There is a probable cold defect in the midportion of the left thyroid lobe, likely corresponding to the nodule seen in this location on ultrasound (nodule #4). The uptake is 11.5% at 4 hours and 35.38% at 24 hours. NM/NM thyroid w uptake IMPRESSION: 1. Findings consistent with a hot nodule at the upper pole of the left thyroid lobe corresponding to the nodule seen on ultrasound. 2. Probable cold nodule in the midportion of the left thyroid lobe corresponding to the nodule seen on ultrasound. 3. The 24-hour uptake is at the upper limits of normal. Electronically signed by: Desmond Valerio MD 11/16/2024 10:11 AM EDT EXAMINATION: US THYROID 10/08/24 HISTORY: E05.90 - Thyrotoxicosis, unspecified without thyrotoxic crisis or storm TECHNIQUE: Real-time grayscale ultrasound imaging was performed and images were reviewed. COMPARISON: There are no prior studies available for comparison. FINDINGS: SIZE: The right thyroid lobe measures 7.6 x 2.3 x 3.5 cm. The left thyroid lobe measures 6.8 x 2.3 x 4.0 cm. The isthmus measures 5 mm. FLOW: Flow to the gland is normal. ECHOGENICITY: The echotexture of the gland is heterogeneous. NODULES: Multiple nodules are identified as described below: Nodule #: 1 Location: Upper pole of the right thyroid lobe measuring 1.4 x 0.8 x 1.3 cm. Shape: Wider than tall (0 points) Margins: Smooth (0 points) Echotexture: Isoechoic (1 point) Composition: Solid (2 points) Calcifications: None (0 points) Total points: 3 TIRADS: TR3: Mildly suspicious. Nodule #: 2 Location: Lower pole of the right thyroid lobe measuring 1.0 x 0.9 x 1.2 cm. Shape: Wider than tall (0 points) Margins: Smooth (0 points) Echotexture: Isoechoic (1 point) Composition: Solid (2 points) Calcifications: None (0 points) Total points: 3 TIRADS: TR3: Mildly suspicious. Nodule #: 3 Location: Upper pole of the left thyroid lobe measuring 1.7 x 1.1 x 1.8 cm. Shape: Wider than tall (0 points) Margins: Smooth (0 points) Echotexture: Indeterminate (1 point) Composition: Mostly solid (2 points) Calcifications: Punctate calcifications (3 points) Total points: 6 TIRADS: TR4: Moderately suspicious. Nodule #: 4 Location: Midportion of the left thyroid lobe measuring 1.6 x 1.1 x 1.6 cm. Shape: Wider than tall (0 points) Margins: Ill-defined (0 points) Echotexture: Isoechoic (1 point) Composition: Mostly solid (2 points) Calcifications: None (0 points) Total points: 3 TIRADS: TR3: Mildly suspicious. US/US thyroid IMPRESSION: Multiple bilateral thyroid nodules as described above. According to ACR TI-RADS guidelines below, nodule #3 should undergo ultrasound-guided fine-needle aspiration. [facility] Medical History (Updated 11/20/24 @ 11:16 by Rosemarie Mart MD) Toxic multinodul goiter Thyromegaly Hyperthyroidism delivery delivered Surgical History H/O removal of cyst Family History Mother Kidney problem Father No problems noted. Social History Alcohol intake: never Patient Tobacco Use Status: Current everyday Tobacco user Tobacco use type: Cigarette Cigarette Packs Per Day: 1 Physical Exam Vital Signs: Last Vital Signs Pulse 94 11/20/24 11:01 BP 122/68 11/20/24 11:01 Pulse Ox 98 11/20/24 11:01 Oxygen Delivery Method Room Air 11/20/24 11:01 BMI result Body Mass Index 45.7 Assessment & Plan Assessment & Plan (1) Hyperthyroidism: Code(s): E05.90 - Thyrotoxicosis, unspecified without thyrotoxic crisis or storm Category: Medical Plan: 58-year-old female with no family history of thyroid cancer with no personal history of head or neck radiation coming in today for follow up of hyperthyroidism. Per chart review she has a history of hyperthyroidism diagnosed some 3-4 years ago, she was on methimazole for a little bit but has been off it for a few years. Was lost to follow up. Was previously seen at [facility]. 08/30/2024: TSH 0.11, free T4 1.13, total T3 101, TSI less than 89, TPO and TSH receptor antibodies undetectable 10/08/2024: Ultrasound with the thyroid I reviewed the images myself which showed a right superior 1.4 cm solid isoechoic TR 3 nodule, meets criteria for follow up. A right lower pole 1.2 cm solid isoechoic TR 3 nodule. A left superior 1.8 cm solid hypoechoic nodule with punctate echogenic foci, TR 4/5 category. Meets criteria for FNA. A left midpole 1.6 cm solid isoechoic TR 3 nodule. This meets criteria for follow up. 11/15/2024: Thyroid uptake and scan shows mildly increased uptake with a heterogenous appearance. Left superior nodule corresponds to a hot nodule. Cold defect in the midportion of the left lobe corresponding to the left mid lobe nodule. Above information is consistent with toxic nodular goiter with subclinical hyperthyroidism. At this time given age is less than 65, TSH is greater than 0.1, her symptoms are not that significant, no history of osteoporosis, no history of heart disease, we will continue to monitor this. I explained to the patient criteria for treatment of subclinical hyperthyroidism and in her case options of radioactive iodine ablation versus surgery. However at this time we do not have to consider these given she has only mild subclinical hyperthyroidism. Plan: -ordered TSH, free T4, total T3, to be repeated in June 2025 prior to follow up -next ultrasound of the thyroid to be done in September 2025 (2) Toxic multinodul goiter: Code(s): E05.20 - Thyrotoxicosis with toxic multinodular goiter without thyrotoxic crisis or storm Category: Medical Plan: See above Plan I spent 30 minutes in reviewing the record, seeing the patient and documenting in the medical record. Orders: Orders Thyroid Stimulating Hormone 06/10/25 E05.20 - Thyrotoxicosis with toxic multinodular goiter without thyrotoxic crisis or storm, E05.90 - Thyrotoxicosis, unspecified without thyrotoxic crisis or storm Free T4 (Free Thyroxine) 06/10/25 E05.20 - Thyrotoxicosis with toxic multinodular goiter without thyrotoxic crisis or storm, E05.90 - Thyrotoxicosis, unspecified without thyrotoxic crisis or storm Triiodothyronine T3 Total 06/10/25 E05.20 - Thyrotoxicosis with toxic multinodular goiter without thyrotoxic crisis or storm, E05.90 - Thyrotoxicosis, unspecified without thyrotoxic crisis or storm Patient Instructions: Do blood work 1-2 weeks prior to follow up in June 2025 Coding Level of Care Code Est Pt Level 4 (28150) Diagnoses Hyperthyroidism E05.90 Toxic multinodul goiter E05.20 Time Spent (min) 30
--- OUTSIDE RECORDS SUMMARY | 2024-11-20 12:08 | XMS_ITS | Clinical Summary ---
Author Organization [facility] Address [address] [place] [address] Care Team Providers Care Metal Miner Name Role Phone Unavailable Primary Care Provider [...] Report CLINICAL INDICATIONS: DIGITAL MAMMO BILAT SCREENING [facility] 9005 - DIGITAL MAMMO BILAT SCREENING - Jul 31 2013 1:17PM Acc#: [id number] RESULT: History: Routine annual screening mammography. No [...] Report CLINICAL INDICATIONS: DIGITAL MAMMO BILAT SCREENING [facility] 9005 - DIGITAL MAMMO BILAT SCREENING - Jul 31 2013 1:17PM Acc#:[id number] RESULT: History: Routine annual screening mammography. No [...]
--- OUTSIDE RECORDS SUMMARY | 2024-11-20 12:08 | XMS_ITS | Clinical Summary ---
Author Organization [facility] Address [address] [place] [phone] Phone Care Team Providers Care Dry Folder Cloth Name Role Phone Herbie Huang DO Primary Care Provider [phone] Allergies No known active allergies Medications atorvastatin [...] - [address] [place] [phone] Kate Simpson MA 10/31/2024 12:49 PM EDT Anesthesia Event [facility] Endoscopy [address] [place] [address] Lonny Barton DO Steele, Matthew G, CRNA 10/31/2024 12:05 PM EDT - 10/31/2024 11:59 PM EDT Hospital Encounter [facility] [address] [place] [address] Ashley Henao MD Steele, Matthew G, CRNA Walsh, Michael, DO Hx of colonic polyps Discharge Disposition: Home or Self Care 10/29/2024 Telephone Gastroenterology - [address] [place] [phone] Ashley Henao MD 10/19/2024 Telephone Gastroenterology - [address] [place] [phone] Ashley Henao MD 08/29/2024 Telephone Gastroenterology - [address] [place] [phone] Ashley Henao MD 08/27/2024 Telephone Gastroenterology - [address] [place] [phone] Kate Simpson MA 08/23/2024 1:48 PM EDT - 08/23/2024 11:59 PM EDT Hospital Encounter [facility] End[facility] [address] [place] [address] Ashley Henao MD Georgette, Nathaniel, CRNA Kriz, [...] EDT Routine general medical examination at a [facility] facility Impaired fasting glucose 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 ischemic heart disease 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 Hyperlipemia DM2 (diabetes mellitus, type 2) (CMS/HCC V24, CMS/HCC V28) Diabetes mellitus (CMS/HCC V24, CMS/HCC V28) from Last 3 Months or Most Recently Relevant to Health Maintenance Results * COLONOSCOPY Anesthesia - MAC; [facility] ENDOSCOPY (10/31/2024 1:05 PM EDT) Only [...] pathology results. Narrative 10/31/2024 1:07 PM EDT [facility] GI Patient Name: Loli Shah Procedure Date: [...] without abnormality. Procedure Code(s): --- Professional --- 07571, Colonoscopy, flexible; with removal of tumor(s), polyp(s), or other lesion(s) by snare technique Diagnosis Code(s): --- Professional --- Z86.010, Personal history of colonic polyps D12.2, Benign neoplasm of ascending colon CPT copyright 2020 [employer]. All rights reserved. The codes documented in this report are preliminary and upon cargo service supervisor review may be revised to meet current compliance requirements. Ashley Henao MD 10/31/2024 1:07:32 PM This report has been signed electronically.Ashley Henao MD Number of Addenda: 0 Note Initiated On: 10/31/2024 12:37 PM Scope In: Scope Out: Endoscopy Department at [facility] - [address] [place] [phone] Procedure Note Ashley Henao MD - 10/31/2024 [facility] GI Patient Name: Loli Shah Procedure Date: [...] without abnormality. Procedure Code(s): --- Professional --- 31373, Colonoscopy, flexible; with removal of tumor(s), polyp(s), or other lesion(s) by snare technique Diagnosis Code(s): --- Professional --- Z86.010, Personal history of colonic polyps D12.2, Benign neoplasm of ascending colon CPT copyright 2020 [employer]. All rights reserved. The codes documented in this report are preliminary and upon cargo service supervisor reviewmay be revised to meet current compliance requirements. Ashley Henao MD 10/31/2024 1:07:32 PM This report has been signed electronically.Ashley Henao MD Number of Addenda: 0 Note Initiated On: 10/31/2024 12:37 PM Scope In: Scope Out: Endoscopy Department at [facility] - [address] [place] [phone] IMPRESSION: - The examined portion of the [...] levels are examined. 11/02/2024 8:54 AM EDT [facility] ([facility] Gross Description A. Large Intestine, Right/Ascending Colon, polyp: Labeled ascending colon polyp . Received in formalin are three irregular pearson mucosal tissue fragments, each measuring approximately 0.3 cm in greatest dimension, which are wrapped in paper and submitted in toto in one cassette, three pieces, multiple levels on one slide. OWEN 11/02/2024 8:54 AM EDT [facility] Disclaimer Unless otherwise specified, all tissue is 10% NB formalin fixed and paraffin embedded. 11/02/2024 8:54 AM EDT [facility] Tissue Ascending colon structure / Unknown 10/31/2024 1:00 PM EDT 10/31/2024 1:36 PM EDT us Ashley Henao MD LAB PATHOLOGY ORDERABLES Final Result [facility] [address] [place] [address], [place] [phone] * (ABNORMAL) Lipid panel with reflex to direct LDL (10/29/2024 2:45 PM EDT) Cholesterol 170 0 - 200 mg/dL LAB CHEMISTRY METHOD 10/29/2024 7:52 PM EDT [facility] Triglycerides 132 0 - 150 mg/dL LAB CHEMISTRY METHOD 10/29/2024 7:52 PM [facility] HDL 43 >=40 mg/dL LAB CHEMISTRY METHOD 10/29/2024 7:52 PM EDT [facility] LDL Calculated 101(H) 0 - 100 mg/dL LAB CHEMISTRY METHOD 10/29/2024 7:52 PM [facility] VLDL Cholesterol Bebo 26.4 mg/dL LAB CHEMISTRY METHOD 10/29/2024 7:52 PM EDT [facility] Non HDL Chol. (LDL+VLDL) 127 <145 mg/dL LAB CHEMISTRY METHOD [facility]2024 7:[facility] Chol/HDL Ratio 4.0 0.0 - 4.4 LAB CHEMISTRY METHOD 10/29/2024 7:52 PM EDT [facility] Blood Venous blood specimen / Unknown Venipuncture / Unknown 10/29/2024 2:45 PM EDT 10/29/2024 2:45 PM EDT us Patiño Petersen ELECTROENCEPHALOGRAPHIC TECHNICIAN LAB BLOOD ORDERABLES Final Resul t Performing Organization Address [facility] Co de Phone Number [facility] [address] [place] [address], [place] [phone] * Alanine aminotransferase (10/29/2024 2:45 PM EDT) ALT (SGPT) 20 10 - 60 unit/L LAB CHEMISTRY METHOD 10/29/2024 7:52 PM EDT [facility] Blood Venous blood specimen / Unknown Venipuncture / Unknown 10/29/2024 2:45 PM EDT 10/29/2024 2:45 PM EDT us Patiño Petersen ELECTROENCEPHALOGRAPHIC TECHNICIAN LAB BLOOD ORDERABLES Final Resul t Performing Organization Address [facility] de Phone Number [facility] [address] [place] [address], [place] [phone] * (ABNORMAL) Aspartate aminotransferase (10/29/2024 2:45 PM EDT) AST (SGOT) 9(L) 10 - 42 unit/L LAB CHEMISTRY METHOD 10/29/2024 7:52 PM EDT [facility] Blood Venous blood specimen / Unknown Venipuncture / Unknown 10/29/2024 2:45 PM EDT 10/29/2024 2:45 PM EDT us Patiño Petersen ELECTROENCEPHALOGRAPHIC TECHNICIAN LAB BLOOD ORDERABLES Final Resul t Performing Organization Address [facility] Co de Phone Number [facility] [address] [place] [address], [place] [phone] * (ABNORMAL) Hemoglobin A1c (10/29/2024 2:45 PM EDT) [facility] Hemoglobin A1C 6.6(H) <6.5 % LAB CHEMISTRY METHOD 10/30/2024 10:55 AM EDT [facility] Mean Bld Glu Estim. 143 mg/dL LAB CHEMISTRY METHOD 10/30/2024 10:55 AM EDT [facility] Blood Venous blood specimen / Unknown Venipuncture / Unknown 10/29/2024 2:45 PM EDT 10/29/2024 2:45 PM EDT us Patiño Petersen ELECTROENCEPHALOGRAPHIC TECHNICIAN LAB BLOOD ORDERABLES Final Resul t Performing Organization Address [facility]/ZIP Co de Phone Number [facility] [address] [place] [address], [place] [phone] * Creatine kinase (10/29/2024 2:45 PM EDT) [facility] Total CK 149 22 - 269 unit/L LAB CHEMISTRY METHOD 10/29/2024 7:52 PM EDT [facility] Blood Venous blood specimen / Unknown Venipuncture / Unknown 10/29/2024 2:45 PM EDT 10/29/2024 2:45 PM EDT us Kaylyn Petersen ELECTROENCEPHALOGRAPHIC TECHNICIAN LAB BLOOD ORDERABLES Final Resul t Performing Organization Address City/[facility]/ZIP Co de Phone Number [facility] [address] [place] [address], [place] [phone] * (ABNORMAL) Basic metabolic panel (10/29/2024 2:45 PM EDT) [facility] Sodium 140 133 - 145 mmol/L LAB CHEMISTRY METHOD 10/29/2024 7:52 PM EDT [facility] Potassium 3.9 3.5 - 5.5 mmol/L LAB CHEMISTRY METHOD 10/29/2024 7:52 PM EDT [facility] Chloride 110 96 - 110 mmol/L LAB CHEMISTRY METHOD 10/29/2024 7:52 PM EDT [facility] CO2 27 21 - 32 mmol/L LAB CHEMISTRY METHOD 10/29/2024 7:52 PM EDT [facility] Anion Gap 3 3 - 11 LAB CHEMISTRY METHOD 10/29/2024 7:52 PM EDT [facility] Glucose 107(H) 70 - 100 mg/dL LAB CHEMISTRY METHOD 10/29/2024 7:52 PM EDT [facility] BUN 7 5 - 25 mg/dL LAB CHEMISTRY METHOD 10/29/2024 7:52 PM EDT [facility] Creatinine 0.80 0.50 - 1.10 mg/dL LAB CHEMISTRY METHOD 10/29/2024 7:52 PM EDT [facility] eGFR 85 >=60 mL/min/1. 73m2 LAB CHEMISTRY METHOD 10/29/2024 7:52 PM EDT [facility] Comment:Calculation based on the Chronic Kidney Disease Epidemiology Collaboration (CKD-EPI) equation refit without adjustment for race. BUN/Creatinine Ratio 8.8 LAB CHEMISTRY METHOD 10/29/2024 7:52 PM EDT [facility] Calcium 9.1 8.5 - 10.5 mg/dL LAB CHEMISTRY METHOD 10/29/2024 7:52 PM EDT [facility] Blood Venous blood specimen / Unknown Venipuncture / Unknown 10/29/2024 2:45 PM EDT 10/29/2024 2:45 PM EDT us Patiño Petersen ELECTROENCEPHALOGRAPHIC TECHNICIAN LAB BLOOD ORDERABLES Final Resul t [facility] [address] [place] [address], * MG Mammo Digital Screening w Yovani bilat (07/06/2024 8:14 AM EDT) Anatomical Region Laterality Modality Breast Bilateral Mammography 07/10/2024 4:50 PM EDT Impressions 07/10/2024 4:56 PM EDT No evidence of breast malignancy BI-RADS CATEGORY: 1 - NEGATIVE RECOMMENDATION: Screening bilateral mammogram is recommended in 1 year. Mammo Location: [facility], [address] [place] [address], [address], . -------- FINAL REPORT -------- Dictated By: Valerie Leonardo Dictated Date: 07/10/2024 16:50 ET Assigned Physician: Valerie Leonardo Reviewed and Electronically Signed By: Valerie Leonardo Signed Date: 07/10/2024 16:56 ET Workstation ID: [id number] Transcribed By: Self Edit Transcribed Date: 07/10/2024 [...] year. Mammo Location: [facility], [address] [place], [place], [address], . -------- FINAL REPORT -------- Dictated By: Valerie Leonardo Dictated Date: 07/10/2024 16:50 ET Assigned Physician: Valerie Leonardo Reviewed and Electronically Signed By: Valerie Leonardo Signed Date: 07/10/2024 16:56 ET Workstation ID: [id number] Transcribed By: Self Edit Transcribed Date: 07/10/2024 16:50 ET us Herbie Huang DO IMG BI PROCEDURES Final Resul t * Microalbumin creatinine urine ratio (06/27/2024 8:29 AM EDT) Creatinine, Urine 290.0 mg/dL LAB CHEMISTRY METHOD 06/27/2024 12:46 PM EDT [facility] Microalb, Ur 16.2 0.0 - 29.0 mg/L LAB CHEMISTRY METHOD 06/27/2024 12:46 PM EDT [facility] Microalb/Creat Ratio 6 <30 mg/g creat LAB CHEMISTRY METHOD 06/27/2024 12:46 PM EDT [facility] Urine Urine specimen obtained by clean catch procedure / Unknown Non-blood Collection / Unknown 06/27/2024 8:29 AM EDT 06/27/2024 8:29 AM EDT us Patiño Petersen ELECTROENCEPHALOGRAPHIC TECHNICIAN LAB URINE ORDERABLES Final Resul t [facility] [address] [place] [address], from Last 3 Months or Most Recently Relevant to Health Maintenance Insurance [employer] Care Teams Dry Folder Cloth Relationship Specialty Start Date End Date Herbie Huang DO [address] [place] [phone] PCP - General Internal Medicine 03/06/24
== END 2024-11-20 11:25 | disposition home or self-care (01) ==
LOC: HO.ENCR 11:00
PROVIDERS: PCP Internal Medicine; Visit Provider Student in an Organized Health Care Education/Training Program
DX: E05.90 Thyrotoxicosis, unspecified without thyrotoxic crisis or storm (principal); E05.20 Thyrotoxicosis with toxic multinodular goiter without thyrotoxic crisis or storm
CPT/HCPCS: 99214